=== PATIENT | female | born 1950 | race Caucasian/White ===

== ENCOUNTER 2020-12-15 16:22 | Emergency (ER) | payer MEDICARE, MEDICAID ==
[2020-12-15] MEDS ORDERED: Sodium Chloride 0.9% 10 ML Syringe FLUSH PRN (16:38)
[2020-12-15] MEDS ORDERED: Sodium Chloride 0.9% 1,000 ML IV ONE (16:43)
--- NOTE | 2020-12-15 16:47 | EDM.PDOC ---
ED HPI GENERAL MEDICAL PROBLEM - General Time Seen by Provider: 12/15/20 16:38 Source of Information: Reports: Patient - History of Present Illness INITIAL COMMENTS - FREE TEXT/NARRATIVE: Leonor is a 70 y/o female who apparently had an appt with her psychiatrist today for a medication follow up. She apparently had lost 15 pounds unintentionally over the as the 3 months and had conveyed to her psychiatrist that she has been having 3-4 episodes of diarrhea per day. No fever, but this seems worse since according to the patient. She is eating, but less. She is a primary patient of Jenny PACE at the [facility]. - Related Data Allergies Allergy/AdvReac Type Severity Reaction Status Date / Time penicillin Allergy Hives Verified 12/15/20 17:05 Home Meds: Home Meds Ascorbic Acid 500 mg PO DAILY 12/24/14 [History] Cholecalciferol (Vitamin D3) [Vitamin D] 2,000 unit PO DAILY 12/24/14 [History] Ezetimibe [Zetia] 10 mg PO DAILY 12/24/14 [History] LORazepam [Ativan] 1 mg PO QID 12/24/14 [History] Liothyronine Sodium 0.5 tab PO DAILY 12/24/14 [History] Multivitamin with Minerals [Multivitamins with Minerals] 1 cap PO DAILY 12/24/14 [History] Omeprazole [Prilosec] 40 mg PO DAILY 12/24/14 [History] QUEtiapine Fumarate [Quetiapine Fumarate] 200 mg PO BEDTIME PRN 12/24/14 [History] QUEtiapine [SEROquel XR] 600 mg PO BEDTIME 12/24/14 [History] Sertraline [Zoloft] 200 mg PO BEDTIME 12/24/14 [History] Tamsulosin [Tamsulosin 24 Hr] 0.4 mg PO BEDTIME 12/24/14 [History] Topiramate 100 mg PO DAILY 12/24/14 [History] Warfarin Sodium [Jantoven] 1 tab PO DAILY 12/24/14 [History] atorvaSTATin [Lipitor] 20 mg PO WITHDINNER 12/24/14 [History] busPIRone [Buspar] 20 mg PO BID 12/24/14 [History] Cyanocobalamin (Vitamin B-12) [B-12] 1,000 mcg PO DAILY 12/15/20 [History] Docusate Sodium [Colace] 100 mg PO BEDTIME PRN 12/15/20 [History] Docusate Sodium [Colace] 200 mg PO BEDTIME 12/15/20 [History] Mirtazapine [Remeron] 45 mg PO BEDTIME 12/15/20 [History] Mirtazapine [Remeron] 45 mg PO BEDTIME 12/15/20 [History] amLODIPine Besylate [Amlodipine Besylate] 10 mg PO DAILY 12/15/20 [History] lisinopriL [Lisinopril] 30 mg PO DAILY 12/15/20 [History] Past Medical History Other Gastrointestinal History: colitis, rectal bleeding Other Musculoskeletal History: CONTUSION A YEAR AGO TO TIBULA/FIBULA Other Endocrine/Metabolic History: hypothyroidism Other Dermatologic History: LEFT HAND Review of Systems - Review of Systems Review Of Systems: See Below Constitutional: Reports: Weakness Eyes: Reports: No Symptoms Ears: Reports: No Symptoms Nose: Reports: No Symptoms Mouth/Throat: Reports: No Symptoms Respiratory: Reports: No Symptoms Cardiovascular: Reports: No Symptoms GI/Abdominal: Reports: Decreased Appetite, Diarrhea Genitourinary: Reports: No Symptoms Musculoskeletal: Reports: No Symptoms Skin: Reports: No Symptoms Neurological: Reports: No Symptoms Psychiatric: Reports: No Symptoms ED EXAM, GENERAL - Physical Exam Exam: See Below Exam Limited By: No Limitations General Appearance: Alert, WD/WN, No Apparent Distress (Elderly female, appears older than stated age.) Eye Exam: Bilateral Eye: PERRL Ears: Normal External Exam, Normal Canal, Hearing Grossly Normal, Normal TMs Nose: Normal Inspection, Normal Mucosa Throat/Mouth: Normal Lips, Normal Voice, Other (Tongue slightly dry.) Head: Atraumatic, Normocephalic Neck: Normal Inspection, Supple Respiratory/Chest: No Respiratory Distress, Lungs Clear, Chest Non-Tender Cardiovascular: Normal Peripheral Pulses, Regular Rate, Rhythm, No Murmur GI/Abdominal: Normal Bowel Sounds, Soft (Female) Exam: Deferred Rectal (Female) Exam: Deferred Neurological: Alert, Oriented, CN II-XII Intact, Normal Cognition, No Motor/Sensory Deficits Psychiatric: Normal Affect, Normal Mood Skin Exam: Warm, Dry, Intact, No Rash, Pallor #1 Interpretation EKG Date: 12/15/20 Time: 16:40 Rhythm: NSR Rate (Beats/Min): 84 [place]: Normal P-Wave: Present QRS: Normal ST-T: Normal QT: Normal EKG Interpretation Comments: Sinus Rhythm Course - Vital Signs Text/Narrative:: 1638 The patient was seen by the ENGINEERING EQUIPMENT OPERATOR. Labs ordered. She was given IV fluids. 1730 Labs reviewed. CBC neg, Lactic Acid=2.5, doubt sepsis as cause. Patient afebrile and no sx of infection. CMP Vrnlbv=167, BUN=3, NVK=504, ALT=67. UA reviewed. SG=1.010. Vital are stable. Note INR elevated at 4.7. Will have pt hold her Coumadin for the next 3 doses then have a repeat INR with her PCP Jenny PACE for further direction. Trop and EKG neg, doubt any cardiac findings. In light of her labs and the chronic nature of her sx, we will have her PCP work her up. She has an upcoming appt next week, but will have her make that appt for Tuesday. Patient felt better following fluids. She was given written instructions and she left the ER in stable condition. Last Recorded V/S: Last Vital Signs Temp 37.1 C 12/15/20 16:25 Pulse 104 H 12/15/20 16:25 Resp 16 12/15/20 16:25 BP 163/67 H 12/15/20 16:25 Pulse Ox 99 12/15/20 16:25 - Orders/Labs/Meds Orders: Active Orders 24 hr Category Date Time Status Sodium Chloride 0.9% [Saline Flush] Med 12/15/20 16:38 Active 10 ml FLUSH ASDIRECTED PRN Saline Lock Insert [OM.PC] Stat Oth 12/15/20 16:39 Ordered Medication Orders Sodium Chloride (Sodium Chloride 0.9% 10 Ml Syringe) 10 ml FLUSH ASDIRECTED PRN PRN Reason: Keep Vein Open Labs: Laboratory Tests 12/15/20 12/15/20 12/15/20 Range/Units 16:25 16:25 16:35 WBC 6.8 (4.0-10.0) x10^3/uL RBC 3.93 L (4.00-5.50) x10^6/uL Hgb 13.1 (12.0-16.0) g/dL Hct 36.0 (33.0-47.0) % MCV 91.6 (78.0-93.0) fL MCH 33.3 H (26.0-32.0) pg MCHC 36.4 H (32.0-36.0) g/dL RDW Coeff of Wes 12.1 (10.0-15.0) % Plt Count 313 (130-400) x10^3/uL Immature Gran % (Auto) 0.10 (0.00-0.43) % Neut % (Auto) 48.6 L (50.0-80.0) % Lymph % (Auto) 41.1 (25.0-50.0) % Mathews % (Auto) 9.3 (2.0-11.0) % Eos % (Auto) 0.6 (0.0-4.0) % Baso % (Auto) 0.3 (0.2-1.2) % Neut # (Auto) 3.3 (1.8-7.7) x10^3/uL Lymph # (Auto) 2.8 (1.0-4.8) x10^3/uL Mathews # (Auto) 0.6 (0.0-0.8) x10^3/uL Eos # (Auto) 0.0 (0.0-0.5) x10^3/uL Baso # (Auto) 0.0 (0.0-0.2) x10^3/uL Immature Gran # (Auto) 0.01 (0.00-0.07) x10^3/uL PT (9.9-12.5) SEC INR (2.0-3.5) Sodium (136-145) mmol/L Potassium (3.5-5.1) mmol/L Chloride (98-107) mmol/L Carbon Dioxide (21-32) mmol/L Anion Gap (5-15) mmol/L BUN (7-18) mg/dL Creatinine (0.55-1.02) mg/dL Est Cr Clr Drug Dosing Estimated GFR (MDRD) Glucose (70-99) mg/dL Lactic Acid (0.4-2.0) mmol/L Calcium (8.5-10.1) mg/dL Corrected Calcium (8.5-10.1) mg/dL Magnesium (1.8-2.4) mg/dL Total Bilirubin (0.2-1.0) mg/dL AST (15-37) U/L ALT (14-59) U/L Alkaline Phosphatase (46-116) U/L Troponin I High Sens (<=51) ng/L C-Reactive Protein (<=0.9) mg/dL Total Protein (6.4-8.2) g/dL Albumin (3.4-5.0) g/dL Globulin Albumin/Globulin Ratio Amylase (25-115) U/L Lipase (73-393) U/L TSH, Ultra Sensitive (0.358-3.74) uIU/mL Urine Color Yellow (YELLOW) Urine Appearance Clear (CLEAR) Urine pH 7.0 (5.0-8.0) Ur Specific [place] 1.010 Urine Protein Negative (NEGATIVE) mg/dL Urine Glucose (UA) Negative (NEGATIVE) mg/dL Urine Ketones Negative (NEGATIVE) mg/dL Urine Occult Blood Negative (NEGATIVE) Urine Nitrite Negative (NEGATIVE) Urine Bilirubin Negative (NEGATIVE) Urine Urobilinogen 0.2 (0.2) EU/dL Ur Leukocyte Esterase Negative (NEGATIVE) Salicylates (2.8-20(Therapeutic)) mg/dL Urine Opiates Screen Negative (NEGATIVE) Ur Buprenorphine Scrn Negative (NEGATIVE) Ur Oxycodone Screen Negative (NEGATIVE) Urine Methadone Screen Negative (NEGATIVE) Acetaminophen (10-30) ug/ml Ur Barbiturates Screen Negative (NEGATIVE) Ur Phencyclidine Scrn Negative (NEGATIVE) Ur Amphetamine Screen Negative (NEGATIVE) U Methamphetamines Scrn Negative (NEGATIVE) Urine MDMA Screen Negative (NEGATIVE) U Benzodiazepines Scrn Positive H (NEGATIVE) U Cocaine Metab Screen Negative (NEGATIVE) U Marijuana (THC) Screen Negative (NEGATIVE) Ethyl Alcohol (0-3) mg/dL SARS CoV-2 RNA Rapid KRZYSZTOF (NEGATIVE) 12/15/20 12/15/20 12/15/20 Range/Units 16:35 16:35 16:35 WBC (4.0-10.0) x10^3/uL RBC (4.00-5.50) x10^6/uL Hgb (12.0-16.0) g/dL Hct (33.0-47.0) % MCV (78.0-93.0) fL MCH (26.0-32.0) pg MCHC (32.0-36.0) g/dL RDW Coeff of Wes (10.0-15.0) % Plt Count (130-400) x10^3/uL Immature Gran % (Auto) (0.00-0.43) % Neut % (Auto) (50.0-80.0) % Lymph % (Auto) (25.0-50.0) % Mathews % (Auto) (2.0-11.0) % Eos % (Auto) (0.0-4.0) % Baso % (Auto) (0.2-1.2) % Neut # (Auto) (1.8-7.7) x10^3/uL Lymph # (Auto) (1.0-4.8) x10^3/uL Mathews # (Auto) (0.0-0.8) x10^3/uL Eos # (Auto) (0.0-0.5) x10^3/uL Baso # (Auto) (0.0-0.2) x10^3/uL Immature Gran # (Auto) (0.00-0.07) x10^3/uL PT 51.5 H (9.9-12.5) SEC INR 4.7 H (2.0-3.5) Sodium 131 L (136-145) mmol/L Potassium 3.6 (3.5-5.1) mmol/L Chloride 95 L (98-107) mmol/L Carbon Dioxide 19 L (21-32) mmol/L Anion Gap 20.6 H (5-15) mmol/L BUN 3 L (7-18) mg/dL Creatinine 0.7 (0.55-1.02) mg/dL Est Cr Clr Drug Dosing TNP Estimated GFR (MDRD) > 60 Glucose 111 H (70-99) mg/dL Lactic Acid 2.5 H* (0.4-2.0) mmol/L Calcium 8.5 (8.5-10.1) mg/dL Corrected Calcium 9.1 (8.5-10.1) mg/dL Magnesium 1.7 L (1.8-2.4) mg/dL Total Bilirubin 0.4 (0.2-1.0) mg/dL AST 102 H (15-37) U/L ALT 67 H (14-59) U/L Alkaline Phosphatase 97 (46-116) U/L Troponin I High Sens 6 (<=51) ng/L C-Reactive Protein < 0.2 (<=0.9) mg/dL Total Protein 6.5 (6.4-8.2) g/dL Albumin 3.3 L (3.4-5.0) g/dL Globulin 3.2 Albumin/Globulin Ratio 1.03 Amylase 20 L (25-115) U/L Lipase 67 L (73-393) U/L TSH, Ultra Sensitive 2.321 (0.358-3.74) uIU/mL Urine Color (YELLOW) Urine Appearance (CLEAR) Urine pH (5.0-8.0) Ur Specific [place] Urine Protein (NEGATIVE) mg/dL Urine Glucose (UA) (NEGATIVE) mg/dL Urine Ketones (NEGATIVE) mg/dL Urine Occult Blood (NEGATIVE) Urine Nitrite (NEGATIVE) Urine Bilirubin (NEGATIVE) Urine Urobilinogen (0.2) EU/dL Ur Leukocyte Esterase (NEGATIVE) Salicylates (2.8-20(Therapeutic)) mg/dL Urine Opiates Screen (NEGATIVE) Ur Buprenorphine Scrn (NEGATIVE) Ur Oxycodone Screen (NEGATIVE) Urine Methadone Screen (NEGATIVE) Acetaminophen 3 L (10-30) ug/ml Ur Barbiturates Screen (NEGATIVE) Ur Phencyclidine Scrn (NEGATIVE) Ur Amphetamine Screen (NEGATIVE) U Methamphetamines Scrn (NEGATIVE) Urine MDMA Screen (NEGATIVE) U Benzodiazepines Scrn (NEGATIVE) U Cocaine Metab Screen (NEGATIVE) U Marijuana (THC) Screen (NEGATIVE) Ethyl Alcohol < 3 (0-3) mg/dL SARS CoV-2 RNA Rapid KRZYSZTOF (NEGATIVE) 12/15/20 12/15/20 Range/Units 16:35 16:40 WBC (4.0-10.0) x10^3/uL RBC (4.00-5.50) x10^6/uL Hgb (12.0-16.0) g/dL Hct (33.0-47.0) % MCV (78.0-93.0) fL MCH (26.0-32.0) pg MCHC (32.0-36.0) g/dL RDW Coeff of Wes (10.0-15.0) % Plt Count (130-400) x10^3/uL Immature Gran % (Auto) (0.00-0.43) % Neut % (Auto) (50.0-80.0) % Lymph % (Auto) (25.0-50.0) % Mathews % (Auto) (2.0-11.0) % Eos % (Auto) (0.0-4.0) % Baso % (Auto) (0.2-1.2) % Neut # (Auto) (1.8-7.7) x10^3/uL Lymph # (Auto) (1.0-4.8) x10^3/uL Mathews # (Auto) (0.0-0.8) x10^3/uL Eos # (Auto) (0.0-0.5) x10^3/uL Baso # (Auto) (0.0-0.2) x10^3/uL Immature Gran # (Auto) (0.00-0.07) x10^3/uL PT (9.9-12.5) SEC INR (2.0-3.5) Sodium (136-145) mmol/L Potassium (3.5-5.1) mmol/L Chloride (98-107) mmol/L Carbon Dioxide (21-32) mmol/L Anion Gap (5-15) mmol/L BUN (7-18) mg/dL Creatinine (0.55-1.02) mg/dL Est Cr Clr Drug Dosing Estimated GFR (MDRD) Glucose (70-99) mg/dL Lactic Acid (0.4-2.0) mmol/L Calcium (8.5-10.1) mg/dL Corrected Calcium (8.5-10.1) mg/dL Magnesium (1.8-2.4) mg/dL Total Bilirubin (0.2-1.0) mg/dL AST (15-37) U/L ALT (14-59) U/L Alkaline Phosphatase (46-116) U/L Troponin I High Sens (<=51) ng/L C-Reactive Protein (<=0.9) mg/dL Total Protein (6.4-8.2) g/dL Albumin (3.4-5.0) g/dL Globulin Albumin/Globulin Ratio Amylase (25-115) U/L Lipase (73-393) U/L TSH, Ultra Sensitive (0.358-3.74) uIU/mL Urine Color (YELLOW) Urine Appearance (CLEAR) Urine pH (5.0-8.0) Ur Specific [place] Urine Protein (NEGATIVE) mg/dL Urine Glucose (UA) (NEGATIVE) mg/dL Urine Ketones (NEGATIVE) mg/dL Urine Occult Blood (NEGATIVE) Urine Nitrite (NEGATIVE) Urine Bilirubin (NEGATIVE) Urine Urobilinogen (0.2) EU/dL Ur Leukocyte Esterase (NEGATIVE) Salicylates 5.3 (2.8-20(Therapeutic)) mg/dL Urine Opiates Screen (NEGATIVE) Ur Buprenorphine Scrn (NEGATIVE) Ur Oxycodone Screen (NEGATIVE) Urine Methadone Screen (NEGATIVE) Acetaminophen (10-30) ug/ml Ur Barbiturates Screen (NEGATIVE) Ur Phencyclidine Scrn (NEGATIVE) Ur Amphetamine Screen (NEGATIVE) U Methamphetamines Scrn (NEGATIVE) Urine MDMA Screen (NEGATIVE) U Benzodiazepines Scrn (NEGATIVE) U Cocaine Metab Screen (NEGATIVE) U Marijuana (THC) Screen (NEGATIVE) Ethyl Alcohol (0-3) mg/dL SARS CoV-2 RNA Rapid KRZYSZTOF Negative (NEGATIVE) Meds: Medications Generic Name Dose Route Start Last Admin Trade Name Freq PRN Reason Stop Dose Admin Sodium Chloride 10 ml 12/15/20 16:38 Sodium Chloride 0.9% 10 Ml Syringe FLUSH ASDIRECTED PRN Keep Vein Open Discontinued Medications Generic Name Dose Route Start Last Admin Trade Name Freq PRN Reason Stop Dose Admin Sodium Chloride 1,000 mls @ 999 mls/hr 12/15/20 16:43 12/15/20 16:40 Normal Saline IV 12/15/20 17:43 999 mls/hr ONETIME ONE Administration Departure - Departure Time of Disposition: 18:06 Disposition: Home, Self-Care 01 Condition: Good Clinical Impression: Over-anticoagulated, Chronic diarrhea - Discharge Information *PRESCRIPTION DRUG MONITORING PROGRAM REVIEWED*: Not Applicable *COPY OF PRESCRIPTION DRUG MONITORING REPORT IN PATIENT KG: Not Applicable Instructions: Warfarin Information, Chronic Diarrhea Referrals: Jenny Butterfield PA-C [Primary Care Provider] - Additional Instructions: -Hold Coumadin for next 3 doses -Call clinic and get an appt for Tuesday to have your INR checked. -Diet as tolerates -You also need to make an appt to follow up with Jenny Butterfield PAC for further workup. -Return as needed to the ER. Sepsis Event Note (ED) - Focused Exam Vital Signs: Vital Signs Temp Pulse Resp BP Pulse Ox 12/15/20 16:25 37.1 C 104 H 16 163/67 H 99 - Problem List & Annotations (1) Over-anticoagulated SNOMED Code(s): 87215371, 534665425 Code(s): HEZ2026 - Status: Acute Current Visit: Yes Annotation/Comment:: INR=4.7, no bleeding issues. Hold Coumadin for next 3 doses then repeat INR Fri. (2) Chronic diarrhea SNOMED Code(s): 831408105 Code(s): K52.9 - NONINFECTIVE GASTROENTERITIS AND COLITIS, UNSPECIFIED Status: Acute Current Visit: Yes Annotation/Comment:: No acute lab findings in ER. [place] better after IV fluids. Will have PCP work her up further. She had not stools in the ER or today for that matter. - Problem List Review Problem List Initiated/Reviewed/Updated: Yes - My Orders Last 24 Hours: My Active Orders 12/15/20 16:38 Sodium Chloride 0.9% [Saline Flush] 10 ml FLUSH ASDIRECTED PRN 12/15/20 16:39 Saline Lock Insert [OM.PC] Stat - Assessment/Plan Last 24 Hours: My Active Orders 12/15/20 16:38 Sodium Chloride 0.9% [Saline Flush] 10 ml FLUSH ASDIRECTED PRN 12/15/20 16:39 Saline Lock Insert [OM.PC] Stat Plan: See above
[2020-12-15 17:05] LABS: BARBITURATE SCREEN,URINE NEGATIVE (NEGATIVE); BENZODIAZEPINES SCREEN,URINE POSITIVE (NEGATIVE); BUPRENORPHINE SCREEN,URINE NEGATIVE (NEGATIVE); METHAMPHETAMINE SCREEN, URINE NEGATIVE (NEGATIVE); THC SCREEN,URINE 50 NG/ML NEGATIVE (NEGATIVE)
[2020-12-15 17:12] LABS: ACETAMINOPHEN 3 ug/ml (10-30); CHLORIDE,CL 95 mmol/L (98-107); SODIUM,NA 131 mmol/L (136-145)
[2020-12-15 17:14] LABS: ANION GAP 20.6 mmol/L (5-15)
[2020-12-15 17:23] VITALS: BP 163/67; PULSE 104
== END 2020-12-15 18:25 | disposition home or self-care (01) ==
LOC: VM.ED 16:22
DX: K52.9 Noninfective gastroenteritis and colitis, unspecified (principal); D68.9 Coagulation defect, unspecified; Z79.01 Long term (current) use of anticoagulants; Z88.0 Allergy status to penicillin; Z79.899 Other long term (current) drug therapy; Z20.822 Contact with and (suspected) exposure to COVID-19
CPT/HCPCS: 80053; 80143; 80179; 80305-QW; 80307; 81003; 82150; 83605; 83690; 83735; 84443; 84484; 85025; 85610; 86140; 93005; 93010; 99284; 99284-25; J7030; U0002

== ENCOUNTER 2021-03-14 08:05 | Emergency (ER) | payer MEDICARE, MEDICAID ==
[2021-03-14] MEDS ORDERED: Sodium Chloride 0.9% 10 ML Syringe FLUSH PRN (08:12)
[2021-03-14 08:57] LABS: CHLORIDE,CL 100 mmol/L (98-107); SODIUM,NA 135 mmol/L (136-145)
[2021-03-14 09:01] LABS: ANION GAP 15.9 mmol/L (5-15)
[2021-03-14] MEDS ORDERED: Take Home: Acetaminophen/HYDROcodone 325-5 MG, 5 Tab Pack PO ONE (09:21)
[2021-03-14] MEDS ORDERED: Acetaminophen/HYDROcodone 325-5 MG Tab PO ONE (09:21)
== END 2021-03-14 10:05 | disposition home or self-care (01) ==
LOC: VM.ED 08:05
DX: S09.90XA Unspecified injury of head, initial encounter (principal); B37.9 Candidiasis, unspecified; E78.00 Pure hypercholesterolemia, unspecified; I10 Essential (primary) hypertension; E03.9 Hypothyroidism, unspecified; Z72.0 Tobacco use; Z88.0 Allergy status to penicillin; Z79.01 Long term (current) use of anticoagulants; Z79.899 Other long term (current) drug therapy; Z20.822 Contact with and (suspected) exposure to COVID-19; W18.30XA Fall on same level, unspecified, initial encounter; Y92.039 Unspecified place in apartment as the place of occurrence of the external cause
CPT/HCPCS: 70450; 71250; 72100; 72125; 72170; 80053; 81003; 82550; 83735; 84443; 85025; 85610; 93005; 99284-25; A9270-GY; U0002

== ENCOUNTER 2022-08-02 19:05 | Emergency (ER) | payer MEDICAID, MEDICARE ==
[2022-08-02 19:22] VITALS: PULSE 90
[2022-08-02 19:43] LABS: BASOPHILS PERCENT AUTO 0.4 % (0.2-1.2); EOSINOPHILS PERCENT AUTO 0.4 % (0.0-4.0); HEMATOCRIT 27.5 % (33.0-47.0); HEMOGLOBIN 9.7 g/dL (12.0-16.0); IMMATURE GRAN ABSOLUTE AUTO 0.04 x10^3/uL (0.00-0.07); LYMPHOCYTES ABSOLUTE AUTO 1.9 x10^3/uL (1.0-4.8); MEAN CORPUSCULAR HEMOGLOBIN 35.1 pg (26.0-32.0); MEAN CORPUSCULAR HGB CONC 35.3 g/dL (32.0-36.0); MEAN CORPUSCULAR VOLUME 99.6 fL (78.0-93.0); MONOCYTES ABSOLUTE AUTO 0.7 x10^3/uL (0.0-0.8); NEUTROPHILS PERCENT AUTO 64.7 % (50.0-80.0); PLATELET COUNT,PLT 292 x10^3/uL (130-400); RED BLOOD CELL COUNT 2.76 x10^6/uL (4.00-5.50); WHITE BLOOD CELL COUNT,WBC 7.8 x10^3/uL (4.0-10.0)
[2022-08-02 19:52] LABS: A/G RATIO 1.13; ALANINE AMINOTRANSFERASE,ALT 37 U/L (14-59); ALBUMIN 3.6 g/dL (3.4-5.0); ALKALINE PHOSPHATASE 78 U/L (46-116); AMYLASE 27 U/L (25-115); ASPARTATE AMNIOTRANSFERASE,AST 30 U/L (15-37); BILIRUBIN TOTAL 0.3 mg/dL (0.2-1.0); BLOOD UREA NITROGEN,BUN 9 mg/dL (7-18); C-REACTIVE PROTEIN 0.7 mg/dL (<=0.9); CALCIUM 9.1 mg/dL (8.5-10.1); CARBON DIOXIDE,CO2 18 mmol/L (21-32); CHLORIDE,CL 102 mmol/L (98-107); CREATININE 0.7 mg/dL (0.55-1.02); GLUCOSE RANDOM 132 mg/dL (70-99); LIPASE 86 U/L (73-393); POTASSIUM,K 3.6 mmol/L (3.5-5.1); PROTEIN TOTAL,TP 6.8 g/dL (6.4-8.2); SODIUM,NA 137 mmol/L (136-145)
[2022-08-02 19:53] LABS: ANION GAP 20.6 mmol/L (5-15); ESTIMATED GFR 93 mL/min (>=60)
[2022-08-02 19:56] LABS: INR 2.8 (2.0-3.5)
[2022-08-02] MEDS: Sodium Chloride 0.9% 1,000 ML IV ONE (20:15)
[2022-08-02 22:25] VITALS: BP 134/62
== END 2022-08-02 21:33 | disposition home or self-care (01) ==
LOC: VM.ED 19:05
DX: K52.9 Noninfective gastroenteritis and colitis, unspecified (principal); F41.9 Anxiety disorder, unspecified; I10 Essential (primary) hypertension; E78.00 Pure hypercholesterolemia, unspecified; E03.9 Hypothyroidism, unspecified; F17.210 Nicotine dependence, cigarettes, uncomplicated; Z88.0 Allergy status to penicillin; Z79.899 Other long term (current) drug therapy; Z79.01 Long term (current) use of anticoagulants
CPT/HCPCS: 80053; 82150; 82607; 82746; 83690; 85025; 85610; 86140; 96360; 99284; 99284-25; J7030

== ENCOUNTER 2022-08-28 15:42 | Inpatient (IN) | payer MEDICARE ==
[2022-08-28 16:22] LABS: BASOPHILS PERCENT AUTO 0.1 % (0.2-1.2); HEMATOCRIT 19.9 % (33.0-47.0); IMMATURE GRAN ABSOLUTE AUTO 0.02 x10^3/uL (0.00-0.07); LYMPHOCYTES ABSOLUTE AUTO 1.4 x10^3/uL (1.0-4.8); LYMPHOCYTES PERCENT AUTO 11.8 % (25.0-50.0); MEAN CORPUSCULAR HGB CONC 35.2 g/dL (32.0-36.0); MEAN CORPUSCULAR VOLUME 96.6 fL (78.0-93.0); MONOCYTES ABSOLUTE AUTO 0.7 x10^3/uL (0.0-0.8); MONOCYTES PERCENT AUTO 6.3 % (2.0-11.0); NEUTROPHILS ABSOLUTE AUTO 9.3 x10^3/uL (1.8-7.7); NEUTROPHILS PERCENT AUTO 81.6 % (50.0-80.0); PLATELET COUNT,PLT 235 x10^3/uL (130-400); RED BLOOD CELL COUNT 2.06 x10^6/uL (4.00-5.50); WHITE BLOOD CELL COUNT,WBC 11.4 x10^3/uL (4.0-10.0)
[2022-08-28 16:33] LABS: LACTIC ACID 0.6 mmol/L (0.4-2.0)
[2022-08-28 16:40] LABS: A/G RATIO 0.75; ALANINE AMINOTRANSFERASE,ALT 27 U/L (14-59); ALBUMIN 2.4 g/dL (3.4-5.0); ALKALINE PHOSPHATASE 82 U/L (46-116); ASPARTATE AMNIOTRANSFERASE,AST 24 U/L (15-37); BILIRUBIN TOTAL 0.3 mg/dL (0.2-1.0); BLOOD UREA NITROGEN,BUN 15 mg/dL (7-18); C-REACTIVE PROTEIN 7.36 mg/dL (<=0.30); CALCIUM 7.8 mg/dL (8.5-10.1); CARBON DIOXIDE,CO2 19 mmol/L (21-32); CHLORIDE,CL 103 mmol/L (98-107); CREATININE 0.6 mg/dL (0.55-1.02); GLUCOSE RANDOM 118 mg/dL (70-99); MAGNESIUM 1.8 mg/dL (1.8-2.4); PHOSPHORUS 3.2 mg/dL (2.6-4.7); POTASSIUM,K 3.9 mmol/L (3.5-5.1); PROTEIN TOTAL,TP 5.6 g/dL (6.4-8.2); SODIUM,NA 136 mmol/L (136-145); TSH ULTRASENSITIVE 2.908 uIU/mL (0.358-3.74)
[2022-08-28 16:49] LABS: ANION GAP 17.9 mmol/L (5-15); ESTIMATED GFR 97 mL/min (>=60)
[2022-08-28 16:56] LABS: ETHANOL BLOOD MEDICAL < 3 mg/dL (0-3)
[2022-08-28 17:09] LABS: APPEARANCE,URINE CLEAR (CLEAR); BILIRUBIN,URINE NEGATIVE (NEGATIVE); COLOR,URINE LIGHT YELLOW (YELLOW); GLUCOSE,URINE NEGATIVE (NEGATIVE); KETONES,URINE NEGATIVE (NEGATIVE); LEUKOCYTE ESTERASE,URINE NEGATIVE (NEGATIVE); NITRITE,URINE NEGATIVE (NEGATIVE); OCCULT BLOOD,URINE TRACE-LYSED (NEGATIVE); PROTEIN,URINE NEGATIVE (NEGATIVE); UROBILINOGEN,URINE 0.2 EU/dL (0.2)
[2022-08-28 17:11] LABS: CORONAVIRUS COVID-19 NAA NEGATIVE (NEGATIVE); INFLUENZA A NAA NEGATIVE (NEGATIVE); INFLUENZA B NAA NEGATIVE (NEGATIVE); RESPIRATORY SYNCYTIAL VIR NAA NEGATIVE (NEGATIVE)
[2022-08-28 17:13] LABS: AMPHETAMINE, URINE NEGATIVE (NEGATIVE); BARBITUATES,URINE NEGATIVE (NEGATIVE); BENZODIAZEPINES,URINE POSITIVE (NEGATIVE); BUPRENORPHINE,URINE NEGATIVE (NEGATIVE); COCAINE,URINE NEGATIVE (NEGATIVE); MARIJUANA,URINE NEGATIVE (NEGATIVE); METHADONE,URINE NEGATIVE (NEGATIVE); METHAMPHETAMINE,URINE NEGATIVE (NEGATIVE); METHYLENEDIOXYMETHAMP,UR NEGATIVE (NEGATIVE); OPIATES,URINE NEGATIVE (NEGATIVE); OXYCODONE,URINE NEGATIVE (NEGATIVE); PHENCYCLIDINE,URINE NEGATIVE
[2022-08-28] MEDS ORDERED: Iopamidol 612 MG/ML 100 ML Bottle IVPUSH ONE (17:16)
[2022-08-28 17:21] LABS: INR > 13.0 (2.0-3.5)
[2022-08-28 17:22] LABS: PROTHROMBIN TIME > 170.9 SEC (9.5-12.2); PTT,PARTIAL THROMBOPLSTIN TIME > 120.0 SEC (23.6-33.6)
[2022-08-28 17:27] LABS: BACTERIA,URINE NOT SEEN /HPF (NOT SEEN); MUCUS,URINE NOT SEEN /LPF (NOT SEEN); RBC,URINE 0-5 /HPF (NOT SEEN); SQUAMOUS EPITHELIAL CELLS,UR FEW /HPF (NOT SEEN); WBC,URINE 0-5 /HPF (NOT SEEN)
[2022-08-28 17:37] LABS: FECAL OCCULT BLOOD INTERP NEGATIVE (NEGATIVE)
[2022-08-28 18:52] LABS: AMYLASE 11 U/L (25-115); LIPASE 18 U/L (19-71)
[2022-08-28] MEDS ORDERED: QUEtiapine 100 MG Tab PO SCH (21:00)
[2022-08-28] MEDS ORDERED: Phytonadione 5 MG Tab PO ONE (21:15)
[2022-08-28] MEDS: LORazepam 1 MG Tab PO SCH (21:44)
[2022-08-28] MEDS: Sertraline 100 MG Tab PO SCH (21:45)
[2022-08-28] MEDS: Tamsulosin 0.4 MG Cap.ER PO SCH (21:48)
[2022-08-28] MEDS: Mirtazapine 30 MG Tab PO SCH (21:48)
[2022-08-28] MEDS: Docusate Sodium 100 MG Cap PO SCH (21:50)
[2022-08-28] MEDS: QUEtiapine 100 MG Tab PO PRN (21:52)
[2022-08-29] MEDS: QUEtiapine 100 MG Tab PO SCH ×3 (00:49→21:02)
[2022-08-29 08:06] LABS: BASOPHILS PERCENT AUTO 0.3 % (0.2-1.2); EOSINOPHILS PERCENT AUTO 0.4 % (0.0-4.0); HEMATOCRIT 20.7 % (33.0-47.0); HEMOGLOBIN 7.2 g/dL (12.0-16.0); IMMATURE GRAN ABSOLUTE AUTO 0.01 x10^3/uL (0.00-0.07); LYMPHOCYTES ABSOLUTE AUTO 1.5 x10^3/uL (1.0-4.8); LYMPHOCYTES PERCENT AUTO 21.2 % (25.0-50.0); MEAN CORPUSCULAR HEMOGLOBIN 32.4 pg (26.0-32.0); MEAN CORPUSCULAR HGB CONC 34.8 g/dL (32.0-36.0); MEAN CORPUSCULAR VOLUME 93.2 fL (78.0-93.0); MONOCYTES ABSOLUTE AUTO 0.6 x10^3/uL (0.0-0.8); MONOCYTES PERCENT AUTO 8.1 % (2.0-11.0); NEUTROPHILS PERCENT AUTO 69.9 % (50.0-80.0); PLATELET COUNT,PLT 215 x10^3/uL (130-400); RED BLOOD CELL COUNT 2.22 x10^6/uL (4.00-5.50); WHITE BLOOD CELL COUNT,WBC 7.2 x10^3/uL (4.0-10.0)
[2022-08-29] MEDS: Topiramate 50 MG Tab PO SCH (08:20)
[2022-08-29] MEDS: LORazepam 1 MG Tab PO SCH ×4 (08:21→21:00)
[2022-08-29] MEDS: Ascorbic Acid 500 MG Tab PO SCH (08:21)
[2022-08-29] MEDS: Cyanocobalamin (Vitamin B12) 1,000 MCG Tab PO SCH (08:21)
[2022-08-29] MEDS: amLODIPine 10 MG Tab PO SCH (08:22)
[2022-08-29] MEDS: Cholecalciferol (Vitamin D3) 25 MCG Tab PO SCH (08:22)
[2022-08-29] MEDS: Multivitamin Tab PO SCH (08:23)
[2022-08-29] MEDS: Ezetimibe 10 MG Tab PO SCH (08:23)
[2022-08-29] MEDS: Lisinopril 20 MG Tab PO SCH (08:24)
[2022-08-29 08:28] LABS: A/G RATIO 0.72; ALBUMIN 2.1 g/dL (3.4-5.0); BILIRUBIN TOTAL 0.4 mg/dL (0.2-1.0); CALCIUM 7.3 mg/dL (8.5-10.1); CREATININE 0.5 mg/dL (0.55-1.02); EST CRCL DRUG DOSING (CG) 90.41 mL/min; POTASSIUM,K 3.3 mmol/L (3.5-5.1)
[2022-08-29 08:31] LABS: ANION GAP 13.3 mmol/L (5-15)
[2022-08-29 08:35] LABS: INR 2.6 (2.0-3.5); PROTHROMBIN TIME 26.8 SEC (9.5-12.2)
[2022-08-29] MEDS ORDERED: QUEtiapine 100 MG Tab PO SCH (09:00)
[2022-08-29] MEDS: Docusate Sodium 100 MG Cap PO SCH ×2 (10:30→21:00)
[2022-08-29] MEDS ORDERED: Potassium Chloride 20 MEQ Tab.ER PO ONE (11:08)
[2022-08-29] MEDS: Sodium Chloride 0.9% 10 ML Syringe FLUSH PRN (11:27)
[2022-08-29] MEDS: Omeprazole 20 MG Cap.CR PO SCH (11:29)
[2022-08-29] MEDS: atorvaSTATin 40 MG Tab PO SCH (17:38)
[2022-08-29] MEDS: Polyethylene Glycol 3350 Powder 17 GM Packet PO SCH (17:40)
[2022-08-29] MEDS: Tamsulosin 0.4 MG Cap.ER PO SCH (21:00)
[2022-08-29] MEDS: Mirtazapine 30 MG Tab PO SCH (21:00)
[2022-08-29] MEDS: Sertraline 100 MG Tab PO SCH (21:01)
[2022-08-30] MEDS: QUEtiapine 100 MG Tab PO PRN (00:04)
[2022-08-30 07:10] LABS: BASOPHILS PERCENT AUTO 0.4 % (0.2-1.2); EOSINOPHILS ABSOLUTE AUTO 0.1 x10^3/uL (0.0-0.5); EOSINOPHILS PERCENT AUTO 0.9 % (0.0-4.0); HEMATOCRIT 27.4 % (33.0-47.0); HEMOGLOBIN 9.3 g/dL (12.0-16.0); IMMATURE GRAN ABSOLUTE AUTO 0.02 x10^3/uL (0.00-0.07); LYMPHOCYTES ABSOLUTE AUTO 1.8 x10^3/uL (1.0-4.8); LYMPHOCYTES PERCENT AUTO 22.2 % (25.0-50.0); MEAN CORPUSCULAR HEMOGLOBIN 31.6 pg (26.0-32.0); MEAN CORPUSCULAR HGB CONC 33.9 g/dL (32.0-36.0); MEAN CORPUSCULAR VOLUME 93.2 fL (78.0-93.0); MONOCYTES ABSOLUTE AUTO 0.8 x10^3/uL (0.0-0.8); MONOCYTES PERCENT AUTO 9.7 % (2.0-11.0); NEUTROPHILS ABSOLUTE AUTO 5.3 x10^3/uL (1.8-7.7); NEUTROPHILS PERCENT AUTO 66.5 % (50.0-80.0); PLATELET COUNT,PLT 221 x10^3/uL (130-400); RED BLOOD CELL COUNT 2.94 x10^6/uL (4.00-5.50); WHITE BLOOD CELL COUNT,WBC 7.9 x10^3/uL (4.0-10.0)
[2022-08-30 07:32] LABS: A/G RATIO 0.65; ALBUMIN 2.2 g/dL (3.4-5.0); ANION GAP 15.2 mmol/L (5-15); BILIRUBIN TOTAL 0.6 mg/dL (0.2-1.0); CALCIUM 8.2 mg/dL (8.5-10.1); CREATININE 0.5 mg/dL (0.55-1.02); EST CRCL DRUG DOSING (CG) 90.41 mL/min; POTASSIUM,K 4.2 mmol/L (3.5-5.1); PROTEIN TOTAL,TP 5.6 g/dL (6.4-8.2); PROTHROMBIN TIME 10.9 SEC (9.5-12.2)
[2022-08-30] MEDS: Polyethylene Glycol 3350 Powder 17 GM Packet PO SCH (08:31)
[2022-08-30] MEDS: Topiramate 50 MG Tab PO SCH (08:31)
[2022-08-30] MEDS: Ezetimibe 10 MG Tab PO SCH (08:31)
[2022-08-30] MEDS: QUEtiapine 100 MG Tab PO SCH ×2 (08:32→20:31)
[2022-08-30] MEDS: Lisinopril 20 MG Tab PO SCH (08:33)
[2022-08-30] MEDS: Multivitamin Tab PO SCH (08:34)
[2022-08-30] MEDS: Cholecalciferol (Vitamin D3) 25 MCG Tab PO SCH (08:34)
[2022-08-30] MEDS: amLODIPine 10 MG Tab PO SCH (08:34)
[2022-08-30] MEDS: Docusate Sodium 100 MG Cap PO SCH ×2 (08:35→20:28)
[2022-08-30] MEDS: Omeprazole 20 MG Cap.CR PO SCH (08:35)
[2022-08-30] MEDS: Ascorbic Acid 500 MG Tab PO SCH (08:35)
[2022-08-30] MEDS: LORazepam 1 MG Tab PO SCH ×2 (08:35→12:55)
[2022-08-30] MEDS: Cyanocobalamin (Vitamin B12) 1,000 MCG Tab PO SCH (08:36)
[2022-08-30] MEDS: Acetaminophen 325 MG Tab PO PRN ×2 (14:01→21:31)
[2022-08-30] MEDS: Sodium Chloride 0.9% 10 ML Syringe FLUSH PRN (17:36)
[2022-08-30] MEDS: atorvaSTATin 40 MG Tab PO SCH (17:37)
[2022-08-30] MEDS: LORazepam 0.5 MG Tab PO SCH ×2 (17:38→20:28)
[2022-08-30] MEDS: Sertraline 100 MG Tab PO SCH (20:26)
[2022-08-30] MEDS: Tamsulosin 0.4 MG Cap.ER PO SCH (20:26)
[2022-08-30] MEDS: Mirtazapine 30 MG Tab PO SCH (20:29)
[2022-08-31] MEDS: QUEtiapine 100 MG Tab PO PRN (04:23)
[2022-08-31 07:40] LABS: BASOPHILS PERCENT AUTO 0.3 % (0.2-1.2); EOSINOPHILS ABSOLUTE AUTO 0.1 x10^3/uL (0.0-0.5); EOSINOPHILS PERCENT AUTO 1.3 % (0.0-4.0); HEMATOCRIT 25.7 % (33.0-47.0); HEMOGLOBIN 8.7 g/dL (12.0-16.0); IMMATURE GRAN ABSOLUTE AUTO 0.01 x10^3/uL (0.00-0.07); LYMPHOCYTES ABSOLUTE AUTO 1.6 x10^3/uL (1.0-4.8); LYMPHOCYTES PERCENT AUTO 22.1 % (25.0-50.0); MEAN CORPUSCULAR HGB CONC 33.9 g/dL (32.0-36.0); MEAN CORPUSCULAR VOLUME 94.5 fL (78.0-93.0); MONOCYTES ABSOLUTE AUTO 0.8 x10^3/uL (0.0-0.8); MONOCYTES PERCENT AUTO 11.7 % (2.0-11.0); NEUTROPHILS ABSOLUTE AUTO 4.6 x10^3/uL (1.8-7.7); NEUTROPHILS PERCENT AUTO 64.5 % (50.0-80.0); PLATELET COUNT,PLT 233 x10^3/uL (130-400); RED BLOOD CELL COUNT 2.72 x10^6/uL (4.00-5.50); WHITE BLOOD CELL COUNT,WBC 7.1 x10^3/uL (4.0-10.0)
[2022-08-31 07:46] LABS: CALCIUM 7.8 mg/dL (8.5-10.1); CREATININE 0.5 mg/dL (0.55-1.02); EST CRCL DRUG DOSING (CG) 90.41 mL/min; POTASSIUM,K 4.4 mmol/L (3.5-5.1)
[2022-08-31 07:48] LABS: ANION GAP 13.4 mmol/L (5-15)
[2022-08-31 09:31] VITALS: BP 110/56; PULSE 84
[2022-08-31] MEDS: Topiramate 50 MG Tab PO SCH (09:36)
[2022-08-31] MEDS: Omeprazole 20 MG Cap.CR PO SCH (09:36)
[2022-08-31] MEDS: Ascorbic Acid 500 MG Tab PO SCH (09:36)
[2022-08-31] MEDS: LORazepam 0.5 MG Tab PO SCH (09:36)
[2022-08-31] MEDS: Multivitamin Tab PO SCH (09:36)
[2022-08-31] MEDS: Ezetimibe 10 MG Tab PO SCH (09:37)
[2022-08-31] MEDS: Lisinopril 20 MG Tab PO SCH (09:37)
[2022-08-31] MEDS: Cholecalciferol (Vitamin D3) 25 MCG Tab PO SCH (09:38)
[2022-08-31] MEDS: Docusate Sodium 100 MG Cap PO SCH (09:38)
[2022-08-31] MEDS: QUEtiapine 100 MG Tab PO SCH (09:38)
[2022-08-31] MEDS: amLODIPine 10 MG Tab PO SCH (09:39)
[2022-08-31] MEDS: Cyanocobalamin (Vitamin B12) 1,000 MCG Tab PO SCH (09:39)
[2022-08-31] MEDS: Polyethylene Glycol 3350 Powder 17 GM Packet PO SCH (09:39)
== END 2022-08-31 11:57 | disposition swing bed (61) | DRG 811 ==
LOC: VM.ED 15:42 → VM.MS 18:47
PROVIDERS: ADMIT Nurse Practitioner Family; ATTEND Internal Medicine
PROC: 30233N1 Transfusion of Nonautologous Red Blood Cells into Peripheral Vein, Percutaneous Approach (ICD-10-PCS; principal; 2022-08-28)
PROC: 30233N1 Transfusion of Nonautologous Red Blood Cells into Peripheral Vein, Percutaneous Approach (ICD-10-PCS; 2022-08-29)
DX: D62 Acute posthemorrhagic anemia (principal); D64.9 Anemia, unspecified; K85.90 Acute pancreatitis without necrosis or infection, unspecified; K21.9 Gastro-esophageal reflux disease without esophagitis; I10 Essential (primary) hypertension; Z20.822 Contact with and (suspected) exposure to COVID-19; E78.5 Hyperlipidemia, unspecified; E78.00 Pure hypercholesterolemia, unspecified; R29.6 Repeated falls; E03.9 Hypothyroidism, unspecified; F31.9 Bipolar disorder, unspecified; R79.1 Abnormal coagulation profile; R41.3 Other amnesia; R73.01 Impaired fasting glucose; M54.2 Cervicalgia; I25.10 Atherosclerotic heart disease of native coronary artery without angina pectoris; F32.A Depression, unspecified; F41.9 Anxiety disorder, unspecified; G43.909 Migraine, unspecified, not intractable, without status migrainosus; Z79.01 Long term (current) use of anticoagulants; Z86.711 Personal history of pulmonary embolism; Z79.899 Other long term (current) drug therapy; Z88.0 Allergy status to penicillin; Z90.49 Acquired absence of other specified parts of digestive tract; Z98.890 Other specified postprocedural states; Z98.51 Tubal ligation status; Z86.718 Personal history of other venous thrombosis and embolism
CPT/HCPCS: 0241U; 36415; 36430; 70450; 71045; 71260; 74177; 80048; 80053; 80305-QW; 80307; 81001; 82150; 82274; 83605; 83690; 83735; 84100; 84443; 84484; 85025; 85610; 85730; 86140; 86850; 86900; 86901; 86920; 86922; 87040; 93005; 93010; 96372; 97162-GP; 99284; 99285; A9270-GY; J3430; J3490; P9016; Q9967

== ENCOUNTER 2022-08-31 11:27 | Inpatient (IN) | payer MEDICAID, MEDICARE ==
[~2022-08-31 11:27] MED LIST: Ascorbic Acid 500 MG Tab PO SCH; Cholecalciferol (Vitamin D3) 25 MCG Tab PO SCH; Cyanocobalamin (Vitamin B12) 1,000 MCG Tab PO SCH; Docusate Sodium 100 MG Cap PO SCH; Ezetimibe 10 MG Tab PO SCH; LORazepam 1 MG Tab PO SCH; QUEtiapine 100 MG Tab PO PRN; amLODIPine 10 MG Tab PO SCH
[2022-08-31] MEDS: LORazepam 1 MG Tab PO SCH ×3 (13:33→20:58)
[2022-08-31] MEDS: Acetaminophen 325 MG Tab PO PRN ×2 (14:06→20:01)
[2022-08-31] MEDS: atorvaSTATin 10 MG Tab PO SCH (17:27)
[2022-08-31] MEDS: Sertraline 100 MG Tab PO SCH (20:57)
[2022-08-31] MEDS: Mirtazapine 30 MG Tab PO SCH (20:58)
[2022-08-31] MEDS: Docusate Sodium 100 MG Cap PO SCH (20:58)
[2022-08-31] MEDS: Tamsulosin 0.4 MG Cap.ER PO SCH (20:58)
[2022-08-31] MEDS: QUEtiapine 100 MG Tab PO SCH (20:59)
[2022-09-01] MEDS: Omeprazole 20 MG Cap.CR PO SCH (06:38)
[2022-09-01 06:52] LABS: BASOPHILS PERCENT AUTO 0.4 % (0.2-1.2); EOSINOPHILS ABSOLUTE AUTO 0.1 x10^3/uL (0.0-0.5); EOSINOPHILS PERCENT AUTO 2.1 % (0.0-4.0); IMMATURE GRAN ABSOLUTE AUTO 0.02 x10^3/uL (0.00-0.07); LYMPHOCYTES ABSOLUTE AUTO 1.6 x10^3/uL (1.0-4.8); MEAN CORPUSCULAR HEMOGLOBIN 31.7 pg (26.0-32.0); MEAN CORPUSCULAR HGB CONC 33.3 g/dL (32.0-36.0); MEAN CORPUSCULAR VOLUME 95.1 fL (78.0-93.0); MONOCYTES ABSOLUTE AUTO 0.7 x10^3/uL (0.0-0.8); MONOCYTES PERCENT AUTO 12.8 % (2.0-11.0); NEUTROPHILS ABSOLUTE AUTO 3.2 x10^3/uL (1.8-7.7); NEUTROPHILS PERCENT AUTO 56.3 % (50.0-80.0); PLATELET COUNT,PLT 299 x10^3/uL (130-400); RED BLOOD CELL COUNT 2.84 x10^6/uL (4.00-5.50); WHITE BLOOD CELL COUNT,WBC 5.6 x10^3/uL (4.0-10.0)
[2022-09-01 07:08] LABS: PROTHROMBIN TIME 10.7 SEC (9.5-12.2)
[2022-09-01] MEDS: Multivitamin Tab PO SCH (08:53)
[2022-09-01] MEDS: QUEtiapine 100 MG Tab PO SCH ×2 (08:54→21:07)
[2022-09-01] MEDS: Ezetimibe 10 MG Tab PO SCH (08:54)
[2022-09-01] MEDS: Cholecalciferol (Vitamin D3) 25 MCG Tab PO SCH (08:54)
[2022-09-01] MEDS: Cyanocobalamin (Vitamin B12) 1,000 MCG Tab PO SCH (08:55)
[2022-09-01] MEDS: Topiramate 50 MG Tab PO SCH (08:55)
[2022-09-01] MEDS: Docusate Sodium 100 MG Cap PO SCH ×2 (08:56→20:36)
[2022-09-01] MEDS: LORazepam 1 MG Tab PO SCH (08:57)
[2022-09-01] MEDS: amLODIPine 10 MG Tab PO SCH (08:59)
[2022-09-01] MEDS: Ascorbic Acid 500 MG Tab PO SCH (08:59)
[2022-09-01] MEDS ORDERED: Lisinopril 10 MG Tab PO SCH (09:00)
[2022-09-01] MEDS: LORazepam 0.5 MG Tab PO SCH ×3 (12:43→21:08)
[2022-09-01] MEDS ORDERED: Polyethylene Glycol/Electrolytes 4,000 ML Bottle PO ONE (16:00)
[2022-09-01] MEDS: Acetaminophen 325 MG Tab PO PRN (17:34)
[2022-09-01] MEDS: atorvaSTATin 10 MG Tab PO SCH (17:34)
[2022-09-01] MEDS: Mirtazapine 30 MG Tab PO SCH (21:07)
[2022-09-01] MEDS: Tamsulosin 0.4 MG Cap.ER PO SCH (21:08)
[2022-09-01] MEDS: Sertraline 100 MG Tab PO SCH (21:08)
[2022-09-02] MEDS: Omeprazole 20 MG Cap.CR PO SCH ×2 (06:30→21:17)
[2022-09-02 07:04] LABS: BASOPHILS PERCENT AUTO 0.5 % (0.2-1.2); EOSINOPHILS ABSOLUTE AUTO 0.1 x10^3/uL (0.0-0.5); EOSINOPHILS PERCENT AUTO 1.6 % (0.0-4.0); HEMATOCRIT 29.2 % (33.0-47.0); HEMOGLOBIN 9.6 g/dL (12.0-16.0); IMMATURE GRAN ABSOLUTE AUTO 0.03 x10^3/uL (0.00-0.07); LYMPHOCYTES ABSOLUTE AUTO 1.4 x10^3/uL (1.0-4.8); LYMPHOCYTES PERCENT AUTO 21.8 % (25.0-50.0); MEAN CORPUSCULAR HEMOGLOBIN 31.4 pg (26.0-32.0); MEAN CORPUSCULAR HGB CONC 32.9 g/dL (32.0-36.0); MEAN CORPUSCULAR VOLUME 95.4 fL (78.0-93.0); MONOCYTES ABSOLUTE AUTO 0.9 x10^3/uL (0.0-0.8); MONOCYTES PERCENT AUTO 14.7 % (2.0-11.0); NEUTROPHILS ABSOLUTE AUTO 3.9 x10^3/uL (1.8-7.7); NEUTROPHILS PERCENT AUTO 60.9 % (50.0-80.0); PLATELET COUNT,PLT 356 x10^3/uL (130-400); RED BLOOD CELL COUNT 3.06 x10^6/uL (4.00-5.50); WHITE BLOOD CELL COUNT,WBC 6.4 x10^3/uL (4.0-10.0)
[2022-09-02 07:31] LABS: PROTHROMBIN TIME 10.8 SEC (9.5-12.2)
[2022-09-02] MEDS ORDERED: Lactated Ringers 1,000 ML IV SCH (09:00)
[2022-09-02] MEDS: Ezetimibe 10 MG Tab PO SCH (09:50)
[2022-09-02] MEDS: Topiramate 50 MG Tab PO SCH (09:50)
[2022-09-02] MEDS: amLODIPine 10 MG Tab PO SCH (09:51)
[2022-09-02] MEDS: QUEtiapine 100 MG Tab PO SCH ×2 (09:51→21:18)
[2022-09-02] MEDS: Multivitamin Tab PO SCH (09:52)
[2022-09-02] MEDS: Docusate Sodium 100 MG Cap PO SCH ×2 (09:52→21:18)
[2022-09-02] MEDS: LORazepam 0.5 MG Tab PO SCH ×4 (09:52→21:19)
[2022-09-02] MEDS: Ascorbic Acid 500 MG Tab PO SCH (09:53)
[2022-09-02] MEDS: Cyanocobalamin (Vitamin B12) 1,000 MCG Tab PO SCH (09:53)
[2022-09-02] MEDS: Cholecalciferol (Vitamin D3) 25 MCG Tab PO SCH (09:53)
[2022-09-02] MEDS ORDERED: Propofol 200 MG/20 ML SDV ONE ×2 (13:34→14:52)
[2022-09-02] MEDS ORDERED: fentaNYL 100 MCG/2 ML SDV ONE (13:34)
[2022-09-02] MEDS: atorvaSTATin 10 MG Tab PO SCH (17:36)
[2022-09-02] MEDS: Sertraline 100 MG Tab PO SCH (21:17)
[2022-09-02] MEDS: Tamsulosin 0.4 MG Cap.ER PO SCH (21:17)
[2022-09-02] MEDS: Mirtazapine 30 MG Tab PO SCH (21:18)
[2022-09-03 06:56] LABS: BASOPHILS PERCENT AUTO 0.4 % (0.2-1.2); EOSINOPHILS ABSOLUTE AUTO 0.1 x10^3/uL (0.0-0.5); EOSINOPHILS PERCENT AUTO 1.3 % (0.0-4.0); HEMATOCRIT 28.3 % (33.0-47.0); HEMOGLOBIN 9.5 g/dL (12.0-16.0); IMMATURE GRAN ABSOLUTE AUTO 0.01 x10^3/uL (0.00-0.07); LYMPHOCYTES ABSOLUTE AUTO 1.4 x10^3/uL (1.0-4.8); LYMPHOCYTES PERCENT AUTO 19.9 % (25.0-50.0); MEAN CORPUSCULAR HEMOGLOBIN 31.8 pg (26.0-32.0); MEAN CORPUSCULAR HGB CONC 33.6 g/dL (32.0-36.0); MEAN CORPUSCULAR VOLUME 94.6 fL (78.0-93.0); MONOCYTES ABSOLUTE AUTO 0.8 x10^3/uL (0.0-0.8); MONOCYTES PERCENT AUTO 11.9 % (2.0-11.0); NEUTROPHILS ABSOLUTE AUTO 4.7 x10^3/uL (1.8-7.7); NEUTROPHILS PERCENT AUTO 66.4 % (50.0-80.0); PLATELET COUNT,PLT 393 x10^3/uL (130-400); RED BLOOD CELL COUNT 2.99 x10^6/uL (4.00-5.50); WHITE BLOOD CELL COUNT,WBC 7.1 x10^3/uL (4.0-10.0)
[2022-09-03] MEDS: Cholecalciferol (Vitamin D3) 25 MCG Tab PO SCH (08:59)
[2022-09-03] MEDS: Ezetimibe 10 MG Tab PO SCH (08:59)
[2022-09-03] MEDS: Omeprazole 20 MG Cap.CR PO SCH ×2 (08:59→21:41)
[2022-09-03] MEDS: Topiramate 50 MG Tab PO SCH (09:00)
[2022-09-03] MEDS: Ascorbic Acid 500 MG Tab PO SCH (09:00)
[2022-09-03] MEDS: amLODIPine 10 MG Tab PO SCH (09:00)
[2022-09-03] MEDS: Multivitamin Tab PO SCH (09:00)
[2022-09-03] MEDS: LORazepam 0.5 MG Tab PO SCH ×4 (09:01→21:40)
[2022-09-03] MEDS: QUEtiapine 100 MG Tab PO SCH ×2 (09:01→21:40)
[2022-09-03] MEDS: Docusate Sodium 100 MG Cap PO SCH ×2 (09:01→21:39)
[2022-09-03] MEDS: Cyanocobalamin (Vitamin B12) 1,000 MCG Tab PO SCH (09:01)
[2022-09-03] MEDS: atorvaSTATin 10 MG Tab PO SCH (17:50)
[2022-09-03] MEDS: Mirtazapine 30 MG Tab PO SCH (21:40)
[2022-09-03] MEDS: Tamsulosin 0.4 MG Cap.ER PO SCH (21:41)
[2022-09-03] MEDS: Sertraline 100 MG Tab PO SCH (21:41)
[2022-09-04 08:11] LABS: INR 0.9 (2.0-3.5); PROTHROMBIN TIME 10.2 SEC (9.5-12.2)
[2022-09-04] MEDS: Omeprazole 20 MG Cap.CR PO SCH ×2 (08:43→20:03)
[2022-09-04] MEDS: amLODIPine 10 MG Tab PO SCH (08:44)
[2022-09-04] MEDS: Enoxaparin 40 MG/0.4 ML Syringe SUBCUT SCH (08:44)
[2022-09-04] MEDS: Topiramate 50 MG Tab PO SCH (08:44)
[2022-09-04] MEDS: Ascorbic Acid 500 MG Tab PO SCH (08:44)
[2022-09-04] MEDS: QUEtiapine 100 MG Tab PO SCH ×2 (08:44→20:03)
[2022-09-04] MEDS: Multivitamin Tab PO SCH (08:45)
[2022-09-04] MEDS: Ezetimibe 10 MG Tab PO SCH (08:45)
[2022-09-04] MEDS: Cyanocobalamin (Vitamin B12) 1,000 MCG Tab PO SCH (08:45)
[2022-09-04] MEDS: Docusate Sodium 100 MG Cap PO SCH ×2 (08:45→21:49)
[2022-09-04] MEDS: LORazepam 0.5 MG Tab PO SCH ×4 (08:45→20:04)
[2022-09-04] MEDS: Cholecalciferol (Vitamin D3) 25 MCG Tab PO SCH (08:46)
[2022-09-04] MEDS: atorvaSTATin 10 MG Tab PO SCH (17:27)
[2022-09-04] MEDS ORDERED: Warfarin 2 MG Tab PO ONE (20:00)
[2022-09-04] MEDS: Mirtazapine 30 MG Tab PO SCH (20:04)
[2022-09-04] MEDS: Sertraline 100 MG Tab PO SCH (20:04)
[2022-09-04] MEDS: Tamsulosin 0.4 MG Cap.ER PO SCH (20:05)
[2022-09-05 08:01] LABS: INR 0.9 (2.0-3.5); PROTHROMBIN TIME 10.2 SEC (9.5-12.2)
[2022-09-05] MEDS: Docusate Sodium 100 MG Cap PO SCH ×2 (08:34→20:49)
[2022-09-05] MEDS: Topiramate 50 MG Tab PO SCH (08:43)
[2022-09-05] MEDS: amLODIPine 10 MG Tab PO SCH (08:43)
[2022-09-05] MEDS: Cholecalciferol (Vitamin D3) 25 MCG Tab PO SCH (08:43)
[2022-09-05] MEDS: QUEtiapine 100 MG Tab PO SCH ×2 (08:43→20:51)
[2022-09-05] MEDS: Cyanocobalamin (Vitamin B12) 1,000 MCG Tab PO SCH (08:43)
[2022-09-05] MEDS: Enoxaparin 40 MG/0.4 ML Syringe SUBCUT SCH (08:44)
[2022-09-05] MEDS: Omeprazole 20 MG Cap.CR PO SCH ×2 (08:44→20:50)
[2022-09-05] MEDS: LORazepam 0.5 MG Tab PO SCH ×4 (08:44→20:51)
[2022-09-05] MEDS: Multivitamin Tab PO SCH (08:44)
[2022-09-05] MEDS: Ascorbic Acid 500 MG Tab PO SCH (08:44)
[2022-09-05] MEDS: Ezetimibe 10 MG Tab PO SCH (08:44)
[2022-09-05] MEDS: atorvaSTATin 10 MG Tab PO SCH (17:23)
[2022-09-05] MEDS ORDERED: Warfarin 2 MG Tab PO ONE (20:00)
[2022-09-05] MEDS: Sertraline 100 MG Tab PO SCH (20:50)
[2022-09-05] MEDS: Tamsulosin 0.4 MG Cap.ER PO SCH (20:50)
[2022-09-05] MEDS: Mirtazapine 30 MG Tab PO SCH (20:50)
[2022-09-06 07:17] LABS: INR 0.9 (2.0-3.5)
[2022-09-06] MEDS: amLODIPine 10 MG Tab PO SCH (08:33)
[2022-09-06] MEDS: Enoxaparin 40 MG/0.4 ML Syringe SUBCUT SCH (08:33)
[2022-09-06] MEDS: LORazepam 0.5 MG Tab PO SCH ×4 (08:34→20:17)
[2022-09-06] MEDS: Ascorbic Acid 500 MG Tab PO SCH (08:34)
[2022-09-06] MEDS: Multivitamin Tab PO SCH (08:34)
[2022-09-06] MEDS: Docusate Sodium 100 MG Cap PO SCH ×2 (08:34→20:21)
[2022-09-06] MEDS: Cholecalciferol (Vitamin D3) 25 MCG Tab PO SCH (08:34)
[2022-09-06] MEDS: Omeprazole 20 MG Cap.CR PO SCH ×2 (08:34→20:17)
[2022-09-06] MEDS: Ezetimibe 10 MG Tab PO SCH (08:34)
[2022-09-06] MEDS: QUEtiapine 100 MG Tab PO SCH ×2 (08:34→20:17)
[2022-09-06] MEDS: Topiramate 50 MG Tab PO SCH (08:34)
[2022-09-06] MEDS: Cyanocobalamin (Vitamin B12) 1,000 MCG Tab PO SCH (08:34)
[2022-09-06 09:05] LABS: BASOPHILS PERCENT AUTO 0.5 % (0.2-1.2); EOSINOPHILS ABSOLUTE AUTO 0.1 x10^3/uL (0.0-0.5); EOSINOPHILS PERCENT AUTO 0.8 % (0.0-4.0); HEMATOCRIT 29.6 % (33.0-47.0); HEMOGLOBIN 9.8 g/dL (12.0-16.0); IMMATURE GRAN ABSOLUTE AUTO 0.02 x10^3/uL (0.00-0.07); LYMPHOCYTES ABSOLUTE AUTO 1.9 x10^3/uL (1.0-4.8); LYMPHOCYTES PERCENT AUTO 25.9 % (25.0-50.0); MEAN CORPUSCULAR HEMOGLOBIN 32.2 pg (26.0-32.0); MEAN CORPUSCULAR HGB CONC 33.1 g/dL (32.0-36.0); MEAN CORPUSCULAR VOLUME 97.4 fL (78.0-93.0); MONOCYTES ABSOLUTE AUTO 0.8 x10^3/uL (0.0-0.8); MONOCYTES PERCENT AUTO 10.5 % (2.0-11.0); NEUTROPHILS ABSOLUTE AUTO 4.5 x10^3/uL (1.8-7.7); PLATELET COUNT,PLT 533 x10^3/uL (130-400); RED BLOOD CELL COUNT 3.04 x10^6/uL (4.00-5.50); WHITE BLOOD CELL COUNT,WBC 7.3 x10^3/uL (4.0-10.0)
[2022-09-06] MEDS: Acetaminophen 325 MG Tab PO PRN ×2 (11:27→20:18)
[2022-09-06] MEDS: atorvaSTATin 10 MG Tab PO SCH (17:38)
[2022-09-06] MEDS ORDERED: Warfarin 2 MG Tab PO ONE (20:00)
[2022-09-06] MEDS: Mirtazapine 30 MG Tab PO SCH (20:16)
[2022-09-06] MEDS: Sertraline 100 MG Tab PO SCH (20:17)
[2022-09-06] MEDS: Tamsulosin 0.4 MG Cap.ER PO SCH (20:17)
[2022-09-07 07:16] LABS: PROTHROMBIN TIME 10.3 SEC (9.5-12.2)
[2022-09-07] MEDS: Cholecalciferol (Vitamin D3) 25 MCG Tab PO SCH (08:09)
[2022-09-07] MEDS: Omeprazole 20 MG Cap.CR PO SCH ×2 (08:09→20:08)
[2022-09-07] MEDS: Topiramate 50 MG Tab PO SCH (08:10)
[2022-09-07] MEDS: Ascorbic Acid 500 MG Tab PO SCH (08:10)
[2022-09-07] MEDS: Docusate Sodium 100 MG Cap PO SCH ×2 (08:11→20:08)
[2022-09-07] MEDS: amLODIPine 10 MG Tab PO SCH (08:11)
[2022-09-07] MEDS: Ezetimibe 10 MG Tab PO SCH (08:11)
[2022-09-07] MEDS: Multivitamin Tab PO SCH (08:12)
[2022-09-07] MEDS: Cyanocobalamin (Vitamin B12) 1,000 MCG Tab PO SCH (08:12)
[2022-09-07] MEDS: QUEtiapine 100 MG Tab PO SCH ×2 (08:12→20:09)
[2022-09-07] MEDS: LORazepam 0.5 MG Tab PO SCH ×4 (08:13→20:08)
[2022-09-07] MEDS: Enoxaparin 40 MG/0.4 ML Syringe SUBCUT SCH (08:13)
[2022-09-07] MEDS: atorvaSTATin 10 MG Tab PO SCH (17:41)
[2022-09-07] MEDS ORDERED: Warfarin 2 MG Tab PO ONE (20:00)
[2022-09-07] MEDS: Sertraline 100 MG Tab PO SCH (20:08)
[2022-09-07] MEDS: Tamsulosin 0.4 MG Cap.ER PO SCH (20:08)
[2022-09-07] MEDS: Mirtazapine 30 MG Tab PO SCH (20:08)
[2022-09-08] MEDS: Acetaminophen 325 MG Tab PO PRN (05:20)
[2022-09-08 07:03] LABS: PROTHROMBIN TIME 11.1 SEC (9.5-12.2)
[2022-09-08] MEDS: LORazepam 0.5 MG Tab PO SCH ×4 (09:51→20:12)
[2022-09-08] MEDS: amLODIPine 10 MG Tab PO SCH (09:51)
[2022-09-08] MEDS: Topiramate 50 MG Tab PO SCH (09:51)
[2022-09-08] MEDS: QUEtiapine 100 MG Tab PO SCH ×2 (09:51→20:12)
[2022-09-08] MEDS: Ezetimibe 10 MG Tab PO SCH (09:51)
[2022-09-08] MEDS: Docusate Sodium 100 MG Cap PO SCH ×2 (09:52→20:12)
[2022-09-08] MEDS: Ascorbic Acid 500 MG Tab PO SCH (09:52)
[2022-09-08] MEDS: Multivitamin Tab PO SCH (09:52)
[2022-09-08] MEDS: Omeprazole 20 MG Cap.CR PO SCH ×2 (09:52→20:13)
[2022-09-08] MEDS: Cholecalciferol (Vitamin D3) 25 MCG Tab PO SCH (09:52)
[2022-09-08] MEDS: Enoxaparin 40 MG/0.4 ML Syringe SUBCUT SCH (09:52)
[2022-09-08] MEDS: Cyanocobalamin (Vitamin B12) 1,000 MCG Tab PO SCH (09:52)
[2022-09-08] MEDS: atorvaSTATin 10 MG Tab PO SCH (17:39)
[2022-09-08] MEDS ORDERED: Warfarin 5 MG Tab PO ONE (20:00)
[2022-09-08] MEDS: Tamsulosin 0.4 MG Cap.ER PO SCH (20:12)
[2022-09-08] MEDS: Sertraline 100 MG Tab PO SCH (20:13)
[2022-09-08] MEDS: Mirtazapine 30 MG Tab PO SCH (20:13)
[2022-09-09 06:56] LABS: BASOPHILS PERCENT AUTO 0.3 % (0.2-1.2); EOSINOPHILS ABSOLUTE AUTO 0.1 x10^3/uL (0.0-0.5); EOSINOPHILS PERCENT AUTO 0.8 % (0.0-4.0); HEMATOCRIT 27.7 % (33.0-47.0); HEMOGLOBIN 9.1 g/dL (12.0-16.0); IMMATURE GRAN ABSOLUTE AUTO 0.01 x10^3/uL (0.00-0.07); LYMPHOCYTES ABSOLUTE AUTO 1.7 x10^3/uL (1.0-4.8); LYMPHOCYTES PERCENT AUTO 27.9 % (25.0-50.0); MEAN CORPUSCULAR HEMOGLOBIN 31.3 pg (26.0-32.0); MEAN CORPUSCULAR HGB CONC 32.9 g/dL (32.0-36.0); MEAN CORPUSCULAR VOLUME 95.2 fL (78.0-93.0); MONOCYTES ABSOLUTE AUTO 0.5 x10^3/uL (0.0-0.8); MONOCYTES PERCENT AUTO 8.8 % (2.0-11.0); NEUTROPHILS ABSOLUTE AUTO 3.7 x10^3/uL (1.8-7.7); PLATELET COUNT,PLT 488 x10^3/uL (130-400); RED BLOOD CELL COUNT 2.91 x10^6/uL (4.00-5.50)
[2022-09-09 07:11] LABS: INR 1.3 (2.0-3.5); PROTHROMBIN TIME 13.4 SEC (9.5-12.2)
[2022-09-09] MEDS: Omeprazole 20 MG Cap.CR PO SCH ×2 (08:04→20:43)
[2022-09-09] MEDS: Cholecalciferol (Vitamin D3) 25 MCG Tab PO SCH (08:04)
[2022-09-09] MEDS: Enoxaparin 40 MG/0.4 ML Syringe SUBCUT SCH (08:04)
[2022-09-09] MEDS: Multivitamin Tab PO SCH (08:05)
[2022-09-09] MEDS: Docusate Sodium 100 MG Cap PO SCH ×2 (08:05→20:43)
[2022-09-09] MEDS: Topiramate 50 MG Tab PO SCH (08:05)
[2022-09-09] MEDS: Cyanocobalamin (Vitamin B12) 1,000 MCG Tab PO SCH (08:05)
[2022-09-09] MEDS: amLODIPine 10 MG Tab PO SCH (08:05)
[2022-09-09] MEDS: Ascorbic Acid 500 MG Tab PO SCH (08:05)
[2022-09-09] MEDS: LORazepam 0.5 MG Tab PO SCH ×4 (08:06→20:43)
[2022-09-09] MEDS: Ezetimibe 10 MG Tab PO SCH (08:06)
[2022-09-09] MEDS: QUEtiapine 100 MG Tab PO SCH ×2 (08:06→20:45)
[2022-09-09] MEDS: atorvaSTATin 10 MG Tab PO SCH (17:37)
[2022-09-09] MEDS ORDERED: Warfarin 5 MG Tab PO ONE (20:00)
[2022-09-09] MEDS: Sertraline 100 MG Tab PO SCH (20:43)
[2022-09-09] MEDS: Mirtazapine 30 MG Tab PO SCH (20:44)
[2022-09-09] MEDS: Tamsulosin 0.4 MG Cap.ER PO SCH (20:44)
[2022-09-10 07:03] LABS: INR 1.5 (2.0-3.5)
[2022-09-10] MEDS: Omeprazole 20 MG Cap.CR PO SCH ×2 (08:27→20:38)
[2022-09-10] MEDS: Cyanocobalamin (Vitamin B12) 1,000 MCG Tab PO SCH (08:27)
[2022-09-10] MEDS: Multivitamin Tab PO SCH (08:28)
[2022-09-10] MEDS: QUEtiapine 100 MG Tab PO SCH ×2 (08:28→20:38)
[2022-09-10] MEDS: Ezetimibe 10 MG Tab PO SCH (08:28)
[2022-09-10] MEDS: Ascorbic Acid 500 MG Tab PO SCH (08:28)
[2022-09-10] MEDS: Cholecalciferol (Vitamin D3) 25 MCG Tab PO SCH (08:28)
[2022-09-10] MEDS: Topiramate 50 MG Tab PO SCH (08:28)
[2022-09-10] MEDS: LORazepam 0.5 MG Tab PO SCH ×4 (08:29→20:38)
[2022-09-10] MEDS: amLODIPine 10 MG Tab PO SCH (08:29)
[2022-09-10] MEDS: Enoxaparin 40 MG/0.4 ML Syringe SUBCUT SCH (08:29)
[2022-09-10] MEDS: Docusate Sodium 100 MG Cap PO SCH ×2 (08:30→20:37)
[2022-09-10] MEDS: atorvaSTATin 10 MG Tab PO SCH (17:31)
[2022-09-10] MEDS: Acetaminophen 325 MG Tab PO PRN (17:32)
[2022-09-10] MEDS ORDERED: Warfarin 5 MG Tab PO ONE (20:00)
[2022-09-10] MEDS: Sertraline 100 MG Tab PO SCH (20:37)
[2022-09-10] MEDS: Mirtazapine 30 MG Tab PO SCH (20:37)
[2022-09-10] MEDS: Tamsulosin 0.4 MG Cap.ER PO SCH (20:38)
[2022-09-11 08:12] LABS: INR 1.5 (2.0-3.5); PROTHROMBIN TIME 16.3 SEC (9.5-12.2)
[2022-09-11] MEDS: Ezetimibe 10 MG Tab PO SCH (08:22)
[2022-09-11] MEDS: Ascorbic Acid 500 MG Tab PO SCH (08:23)
[2022-09-11] MEDS: Topiramate 50 MG Tab PO SCH (08:23)
[2022-09-11] MEDS: amLODIPine 10 MG Tab PO SCH (08:23)
[2022-09-11] MEDS: LORazepam 0.5 MG Tab PO SCH ×4 (08:23→20:14)
[2022-09-11] MEDS: Docusate Sodium 100 MG Cap PO SCH ×2 (08:23→20:13)
[2022-09-11] MEDS: QUEtiapine 100 MG Tab PO SCH ×2 (08:23→20:15)
[2022-09-11] MEDS: Multivitamin Tab PO SCH (08:23)
[2022-09-11] MEDS: Cyanocobalamin (Vitamin B12) 1,000 MCG Tab PO SCH (08:24)
[2022-09-11] MEDS: Omeprazole 20 MG Cap.CR PO SCH ×2 (08:24→20:13)
[2022-09-11] MEDS: Cholecalciferol (Vitamin D3) 25 MCG Tab PO SCH (08:24)
[2022-09-11] MEDS: Enoxaparin 40 MG/0.4 ML Syringe SUBCUT SCH (08:24)
[2022-09-11] MEDS: Acetaminophen 325 MG Tab PO PRN (12:26)
[2022-09-11] MEDS: atorvaSTATin 10 MG Tab PO SCH (17:32)
[2022-09-11] MEDS ORDERED: Warfarin 5 MG Tab PO ONE (20:00)
[2022-09-11] MEDS: Tamsulosin 0.4 MG Cap.ER PO SCH (20:13)
[2022-09-11] MEDS: Sertraline 100 MG Tab PO SCH (20:14)
[2022-09-11] MEDS: Mirtazapine 30 MG Tab PO SCH (20:14)
[2022-09-12 08:02] LABS: INR 1.7 (2.0-3.5)
[2022-09-12] MEDS: Enoxaparin 40 MG/0.4 ML Syringe SUBCUT SCH (08:12)
[2022-09-12] MEDS: Cholecalciferol (Vitamin D3) 25 MCG Tab PO SCH (08:13)
[2022-09-12] MEDS: Omeprazole 20 MG Cap.CR PO SCH ×2 (08:13→20:08)
[2022-09-12] MEDS: Topiramate 50 MG Tab PO SCH (08:13)
[2022-09-12] MEDS: QUEtiapine 100 MG Tab PO SCH ×2 (08:13→20:08)
[2022-09-12] MEDS: LORazepam 0.5 MG Tab PO SCH ×4 (08:14→20:08)
[2022-09-12] MEDS: Ascorbic Acid 500 MG Tab PO SCH (08:14)
[2022-09-12] MEDS: Ezetimibe 10 MG Tab PO SCH (08:14)
[2022-09-12] MEDS: Docusate Sodium 100 MG Cap PO SCH ×2 (08:14→20:08)
[2022-09-12] MEDS: amLODIPine 10 MG Tab PO SCH (08:14)
[2022-09-12] MEDS: Cyanocobalamin (Vitamin B12) 1,000 MCG Tab PO SCH (08:14)
[2022-09-12] MEDS: Multivitamin Tab PO SCH (08:14)
[2022-09-12] MEDS: atorvaSTATin 10 MG Tab PO SCH (17:57)
[2022-09-12] MEDS ORDERED: Warfarin 5 MG Tab PO ONE (20:00)
[2022-09-12] MEDS: Tamsulosin 0.4 MG Cap.ER PO SCH (20:08)
[2022-09-12] MEDS: Sertraline 100 MG Tab PO SCH (20:08)
[2022-09-12] MEDS: Mirtazapine 30 MG Tab PO SCH (20:09)
[2022-09-13 06:48] LABS: INR 1.6 (2.0-3.5); PROTHROMBIN TIME 17.4 SEC (9.5-12.2)
[2022-09-13] MEDS: Enoxaparin 40 MG/0.4 ML Syringe SUBCUT SCH (08:05)
[2022-09-13] MEDS: Omeprazole 20 MG Cap.CR PO SCH ×2 (08:05→20:15)
[2022-09-13] MEDS: LORazepam 0.5 MG Tab PO SCH ×2 (08:06→12:12)
[2022-09-13] MEDS: Cholecalciferol (Vitamin D3) 25 MCG Tab PO SCH (08:06)
[2022-09-13] MEDS: Topiramate 50 MG Tab PO SCH (08:06)
[2022-09-13] MEDS: amLODIPine 10 MG Tab PO SCH (08:07)
[2022-09-13] MEDS: Multivitamin Tab PO SCH (08:07)
[2022-09-13] MEDS: Ezetimibe 10 MG Tab PO SCH (08:08)
[2022-09-13] MEDS: QUEtiapine 100 MG Tab PO SCH (08:08)
[2022-09-13] MEDS: Docusate Sodium 100 MG Cap PO SCH ×2 (08:08→20:15)
[2022-09-13] MEDS: Ascorbic Acid 500 MG Tab PO SCH (08:08)
[2022-09-13] MEDS: Cyanocobalamin (Vitamin B12) 1,000 MCG Tab PO SCH (08:10)
[2022-09-13] MEDS: LORazepam 1 MG Tab (OWN SUPPLY) PO SCH ×2 (17:00→20:16)
[2022-09-13] MEDS: QUETIAPINE 300 MG PO SCH (17:02)
[2022-09-13] MEDS: atorvaSTATin 10 MG Tab PO SCH (17:07)
[2022-09-13] MEDS: TOPIRAMATE 100 MG PO SCH (20:18)
[2022-09-13] MEDS: Tamsulosin 0.4 MG Cap.ER (OWN SUPPLY) PO SCH (20:18)
[2022-09-13] MEDS: MIRTAZAPINE 30 MG PO SCH (20:19)
[2022-09-13] MEDS: Sertraline 100 MG Tab (OWN SUPPLY) PO SCH (20:21)
[2022-09-13] MEDS ORDERED: WARFARIN 3 MG PO SCH (21:00)
[2022-09-14 07:13] LABS: INR 1.9 (2.0-3.5); PROTHROMBIN TIME 20.2 SEC (9.5-12.2)
[2022-09-14] MEDS: LORazepam 1 MG Tab (OWN SUPPLY) PO SCH ×4 (08:04→20:04)
[2022-09-14] MEDS: EZETIMIBE 10 MG PO SCH (08:05)
[2022-09-14] MEDS: amLODIPine 10 MG Tab (OWN SUPPLY) PO SCH (08:06)
[2022-09-14] MEDS: Omeprazole 20 MG Cap.CR PO SCH ×2 (08:16→20:08)
[2022-09-14] MEDS: Docusate Sodium 100 MG Cap PO SCH ×2 (08:19→20:07)
[2022-09-14] MEDS: Cyanocobalamin (Vitamin B12) 1,000 MCG Tab PO SCH (08:19)
[2022-09-14] MEDS: Cholecalciferol (Vitamin D3) 25 MCG Tab PO SCH (08:19)
[2022-09-14] MEDS: Multivitamin Tab PO SCH (08:20)
[2022-09-14] MEDS: Ascorbic Acid 500 MG Tab PO SCH (08:21)
[2022-09-14] MEDS: Enoxaparin 40 MG/0.4 ML Syringe (OWN SUPPLY) SUBCUT SCH (08:45)
[2022-09-14] MEDS: QUETIAPINE 300 MG PO SCH (17:24)
[2022-09-14] MEDS: WARFARIN 3 MG PO SCH (17:37)
[2022-09-14] MEDS: Sertraline 100 MG Tab (OWN SUPPLY) PO SCH (20:05)
[2022-09-14] MEDS: Tamsulosin 0.4 MG Cap.ER (OWN SUPPLY) PO SCH (20:06)
[2022-09-14] MEDS: TOPIRAMATE 100 MG PO SCH (20:06)
[2022-09-14] MEDS: MIRTAZAPINE 30 MG PO SCH (20:07)
[2022-09-15 07:14] LABS: INR 2.1 (2.0-3.5); PROTHROMBIN TIME 21.7 SEC (9.5-12.2)
[2022-09-15] MEDS: amLODIPine 10 MG Tab (OWN SUPPLY) PO SCH (08:43)
[2022-09-15] MEDS: LORazepam 1 MG Tab (OWN SUPPLY) PO SCH ×4 (08:43→20:43)
[2022-09-15] MEDS: EZETIMIBE 10 MG PO SCH (08:47)
[2022-09-15] MEDS: Ascorbic Acid 500 MG Tab PO SCH (08:49)
[2022-09-15] MEDS: Multivitamin Tab PO SCH (08:50)
[2022-09-15] MEDS: Cyanocobalamin (Vitamin B12) 1,000 MCG Tab PO SCH (08:51)
[2022-09-15] MEDS: Omeprazole 20 MG Cap.CR PO SCH ×2 (08:51→20:40)
[2022-09-15] MEDS: Docusate Sodium 100 MG Cap PO SCH ×2 (08:52→20:40)
[2022-09-15] MEDS: Cholecalciferol (Vitamin D3) 25 MCG Tab PO SCH (08:52)
[2022-09-15] MEDS: Enoxaparin 40 MG/0.4 ML Syringe (OWN SUPPLY) SUBCUT SCH (08:53)
[2022-09-15] MEDS: QUETIAPINE 300 MG PO SCH (17:23)
[2022-09-15] MEDS: WARFARIN 3 MG PO SCH (17:25)
[2022-09-15] MEDS: Tamsulosin 0.4 MG Cap.ER (OWN SUPPLY) PO SCH (20:49)
[2022-09-15] MEDS: TOPIRAMATE 100 MG PO SCH (20:50)
[2022-09-15] MEDS: MIRTAZAPINE 30 MG PO SCH (20:51)
[2022-09-15] MEDS: Sertraline 100 MG Tab (OWN SUPPLY) PO SCH (20:52)
[2022-09-16 07:06] LABS: INR 1.6 (2.0-3.5); PROTHROMBIN TIME 16.6 SEC (9.5-12.2)
[2022-09-16] MEDS: Omeprazole 20 MG Cap.CR PO SCH ×2 (08:50→20:44)
[2022-09-16] MEDS: LORazepam 1 MG Tab (OWN SUPPLY) PO SCH ×4 (08:50→20:50)
[2022-09-16] MEDS: Multivitamin Tab PO SCH (08:51)
[2022-09-16] MEDS: Cholecalciferol (Vitamin D3) 25 MCG Tab PO SCH (08:52)
[2022-09-16] MEDS: Cyanocobalamin (Vitamin B12) 1,000 MCG Tab PO SCH (08:52)
[2022-09-16] MEDS: Ascorbic Acid 500 MG Tab PO SCH (08:52)
[2022-09-16] MEDS: amLODIPine 10 MG Tab (OWN SUPPLY) PO SCH (08:53)
[2022-09-16] MEDS: Docusate Sodium 100 MG Cap PO SCH ×2 (08:55→20:44)
[2022-09-16] MEDS: EZETIMIBE 10 MG PO SCH (08:55)
[2022-09-16] MEDS: Enoxaparin 40 MG/0.4 ML Syringe (OWN SUPPLY) SUBCUT SCH (08:55)
[2022-09-16] MEDS: QUETIAPINE 300 MG PO SCH (17:54)
[2022-09-16] MEDS ORDERED: WARFARIN 3 MG PO ONE (18:00)
[2022-09-16] MEDS: MIRTAZAPINE 30 MG PO SCH (20:46)
[2022-09-16] MEDS: Tamsulosin 0.4 MG Cap.ER (OWN SUPPLY) PO SCH (20:47)
[2022-09-16] MEDS: TOPIRAMATE 100 MG PO SCH (20:47)
[2022-09-16] MEDS: Sertraline 100 MG Tab (OWN SUPPLY) PO SCH (20:48)
[2022-09-17 07:13] LABS: INR 1.4 (2.0-3.5); PROTHROMBIN TIME 14.4 SEC (9.5-12.2)
[2022-09-17] MEDS: Cyanocobalamin (Vitamin B12) 1,000 MCG Tab PO SCH (09:18)
[2022-09-17] MEDS: Ascorbic Acid 500 MG Tab PO SCH (09:18)
[2022-09-17] MEDS: Docusate Sodium 100 MG Cap PO SCH ×2 (09:19→20:38)
[2022-09-17] MEDS: Multivitamin Tab PO SCH (09:19)
[2022-09-17] MEDS: Cholecalciferol (Vitamin D3) 25 MCG Tab PO SCH (09:19)
[2022-09-17] MEDS: EZETIMIBE 10 MG PO SCH (09:20)
[2022-09-17] MEDS: Enoxaparin 40 MG/0.4 ML Syringe (OWN SUPPLY) SUBCUT SCH (09:20)
[2022-09-17] MEDS: amLODIPine 10 MG Tab (OWN SUPPLY) PO SCH (09:27)
[2022-09-17] MEDS: LORazepam 1 MG Tab (OWN SUPPLY) PO SCH ×4 (09:32→20:38)
[2022-09-17] MEDS: Omeprazole 20 MG Cap.CR PO SCH ×2 (10:06→20:37)
[2022-09-17] MEDS ORDERED: WARFARIN 3 MG PO ONE ×2 (18:00→18:30)
[2022-09-17] MEDS: QUETIAPINE 300 MG PO SCH (18:06)
[2022-09-17] MEDS ORDERED: WARFARIN 3 MG PO SCH (19:00)
[2022-09-17] MEDS: Acetaminophen 325 MG Tab PO PRN (20:36)
[2022-09-17] MEDS: MIRTAZAPINE 30 MG PO SCH (20:39)
[2022-09-17] MEDS: TOPIRAMATE 100 MG PO SCH (20:39)
[2022-09-17] MEDS: Tamsulosin 0.4 MG Cap.ER (OWN SUPPLY) PO SCH (20:40)
[2022-09-17] MEDS: Sertraline 100 MG Tab (OWN SUPPLY) PO SCH (20:40)
[2022-09-18 07:59] LABS: INR 1.4 (2.0-3.5); PROTHROMBIN TIME 15.1 SEC (9.5-12.2)
[2022-09-18] MEDS: Omeprazole 20 MG Cap.CR PO SCH ×2 (08:10→20:31)
[2022-09-18] MEDS: Ascorbic Acid 500 MG Tab PO SCH (08:10)
[2022-09-18] MEDS: Multivitamin Tab PO SCH (08:10)
[2022-09-18] MEDS: Cholecalciferol (Vitamin D3) 25 MCG Tab PO SCH (08:10)
[2022-09-18] MEDS: Docusate Sodium 100 MG Cap PO SCH ×2 (08:11→20:29)
[2022-09-18] MEDS: Cyanocobalamin (Vitamin B12) 1,000 MCG Tab PO SCH (08:12)
[2022-09-18] MEDS: LORazepam 1 MG Tab (OWN SUPPLY) PO SCH ×4 (08:13→20:26)
[2022-09-18] MEDS: Enoxaparin 40 MG/0.4 ML Syringe (OWN SUPPLY) SUBCUT SCH (08:14)
[2022-09-18] MEDS: EZETIMIBE 10 MG PO SCH (08:14)
[2022-09-18] MEDS: amLODIPine 10 MG Tab (OWN SUPPLY) PO SCH (08:17)
[2022-09-18] MEDS ORDERED: WARFARIN 3 MG PO ONE ×3 (15:15→18:00)
[2022-09-18] MEDS: QUETIAPINE 300 MG PO SCH (17:28)
[2022-09-18] MEDS: TOPIRAMATE 100 MG PO SCH (20:27)
[2022-09-18] MEDS: Tamsulosin 0.4 MG Cap.ER (OWN SUPPLY) PO SCH (20:27)
[2022-09-18] MEDS: MIRTAZAPINE 30 MG PO SCH (20:28)
[2022-09-18] MEDS: Sertraline 100 MG Tab (OWN SUPPLY) PO SCH (20:28)
[2022-09-19] MEDS: QUETIAPINE 200 MG PO PRN (01:34)
[2022-09-19 08:05] LABS: INR 1.6 (2.0-3.5); PROTHROMBIN TIME 16.9 SEC (9.5-12.2)
[2022-09-19] MEDS: Ascorbic Acid 500 MG Tab PO SCH (08:40)
[2022-09-19] MEDS: Omeprazole 20 MG Cap.CR PO SCH ×2 (08:40→20:58)
[2022-09-19] MEDS: Cyanocobalamin (Vitamin B12) 1,000 MCG Tab PO SCH (08:40)
[2022-09-19] MEDS: Multivitamin Tab PO SCH (08:40)
[2022-09-19] MEDS: Docusate Sodium 100 MG Cap PO SCH ×2 (08:40→20:58)
[2022-09-19] MEDS: Cholecalciferol (Vitamin D3) 25 MCG Tab PO SCH (08:40)
[2022-09-19] MEDS: LORazepam 1 MG Tab (OWN SUPPLY) PO SCH ×4 (08:41→21:01)
[2022-09-19] MEDS: EZETIMIBE 10 MG PO SCH (08:41)
[2022-09-19] MEDS: amLODIPine 10 MG Tab (OWN SUPPLY) PO SCH (08:44)
[2022-09-19] MEDS: Enoxaparin 40 MG/0.4 ML Syringe (OWN SUPPLY) SUBCUT SCH (09:21)
[2022-09-19] MEDS: QUETIAPINE 300 MG PO SCH (17:31)
[2022-09-19] MEDS ORDERED: WARFARIN 3 MG PO ONE (18:00)
[2022-09-19] MEDS: Tamsulosin 0.4 MG Cap.ER (OWN SUPPLY) PO SCH (20:58)
[2022-09-19] MEDS: Sertraline 100 MG Tab (OWN SUPPLY) PO SCH (20:59)
[2022-09-19] MEDS: TOPIRAMATE 100 MG PO SCH (20:59)
[2022-09-19] MEDS: MIRTAZAPINE 30 MG PO SCH (21:00)
[2022-09-20] MEDS: LORazepam 1 MG Tab (OWN SUPPLY) PO SCH ×4 (09:05→20:58)
[2022-09-20] MEDS: EZETIMIBE 10 MG PO SCH (09:06)
[2022-09-20] MEDS: amLODIPine 10 MG Tab (OWN SUPPLY) PO SCH (09:07)
[2022-09-20] MEDS: Cholecalciferol (Vitamin D3) 25 MCG Tab PO SCH (09:08)
[2022-09-20] MEDS: Docusate Sodium 100 MG Cap PO SCH ×2 (09:08→20:54)
[2022-09-20] MEDS: Cyanocobalamin (Vitamin B12) 1,000 MCG Tab PO SCH (09:08)
[2022-09-20] MEDS: Multivitamin Tab PO SCH (09:08)
[2022-09-20] MEDS: Ascorbic Acid 500 MG Tab PO SCH (09:08)
[2022-09-20] MEDS: Enoxaparin 40 MG/0.4 ML Syringe (OWN SUPPLY) SUBCUT SCH (09:09)
[2022-09-20] MEDS: Omeprazole 20 MG Cap.CR PO SCH ×2 (09:09→20:55)
[2022-09-20] MEDS: Acetaminophen 325 MG Tab PO PRN (13:06)
[2022-09-20] MEDS: WARFARIN 3 MG PO SCH (17:52)
[2022-09-20] MEDS: QUETIAPINE 300 MG PO SCH (17:55)
[2022-09-20] MEDS: Tamsulosin 0.4 MG Cap.ER (OWN SUPPLY) PO SCH (20:55)
[2022-09-20] MEDS: Sertraline 100 MG Tab (OWN SUPPLY) PO SCH (20:56)
[2022-09-20] MEDS: TOPIRAMATE 100 MG PO SCH (20:56)
[2022-09-20] MEDS: MIRTAZAPINE 30 MG PO SCH (20:57)
[2022-09-21 07:10] LABS: INR 1.6 (2.0-3.5); PROTHROMBIN TIME 16.7 SEC (9.5-12.2)
[2022-09-21] MEDS: Omeprazole 20 MG Cap.CR PO SCH ×2 (08:19→20:05)
[2022-09-21] MEDS: Multivitamin Tab PO SCH (08:20)
[2022-09-21] MEDS: EZETIMIBE 10 MG PO SCH (08:20)
[2022-09-21] MEDS: Docusate Sodium 100 MG Cap PO SCH ×2 (08:20→20:05)
[2022-09-21] MEDS: Ascorbic Acid 500 MG Tab PO SCH (08:20)
[2022-09-21] MEDS: Cyanocobalamin (Vitamin B12) 1,000 MCG Tab PO SCH (08:20)
[2022-09-21] MEDS: Cholecalciferol (Vitamin D3) 25 MCG Tab PO SCH (08:20)
[2022-09-21] MEDS: LORazepam 1 MG Tab (OWN SUPPLY) PO SCH ×4 (08:22→20:07)
[2022-09-21] MEDS: Enoxaparin 40 MG/0.4 ML Syringe (OWN SUPPLY) SUBCUT SCH (08:23)
[2022-09-21] MEDS: amLODIPine 10 MG Tab (OWN SUPPLY) PO SCH (08:24)
[2022-09-21] MEDS: QUETIAPINE 300 MG PO SCH (17:25)
[2022-09-21] MEDS: WARFARIN 3 MG PO SCH (17:25)
[2022-09-21] MEDS: TOPIRAMATE 100 MG PO SCH (20:06)
[2022-09-21] MEDS: Sertraline 100 MG Tab (OWN SUPPLY) PO SCH (20:06)
[2022-09-21] MEDS: MIRTAZAPINE 30 MG PO SCH (20:06)
[2022-09-21] MEDS: Tamsulosin 0.4 MG Cap.ER (OWN SUPPLY) PO SCH (20:06)
[2022-09-22 06:59] LABS: INR 1.7 (2.0-3.5); PROTHROMBIN TIME 17.8 SEC (9.5-12.2)
[2022-09-22] MEDS: Multivitamin Tab PO SCH (08:12)
[2022-09-22] MEDS: Ascorbic Acid 500 MG Tab PO SCH (08:12)
[2022-09-22] MEDS: Cholecalciferol (Vitamin D3) 25 MCG Tab PO SCH (08:12)
[2022-09-22] MEDS: Docusate Sodium 100 MG Cap PO SCH ×2 (08:13→20:28)
[2022-09-22] MEDS: Cyanocobalamin (Vitamin B12) 1,000 MCG Tab PO SCH (08:13)
[2022-09-22] MEDS: Enoxaparin 40 MG/0.4 ML Syringe (OWN SUPPLY) SUBCUT SCH (08:13)
[2022-09-22] MEDS: Omeprazole 20 MG Cap.CR PO SCH ×2 (08:13→20:28)
[2022-09-22] MEDS: LORazepam 1 MG Tab (OWN SUPPLY) PO SCH ×4 (08:13→20:29)
[2022-09-22] MEDS: amLODIPine 10 MG Tab (OWN SUPPLY) PO SCH (08:14)
[2022-09-22] MEDS: EZETIMIBE 10 MG PO SCH (08:14)
[2022-09-22] MEDS: QUETIAPINE 300 MG PO SCH (17:53)
[2022-09-22] MEDS: WARFARIN 3 MG PO ONE ×2 (18:05→18:06)
[2022-09-22] MEDS: TOPIRAMATE 100 MG PO SCH (20:29)
[2022-09-22] MEDS: Sertraline 100 MG Tab (OWN SUPPLY) PO SCH (20:29)
[2022-09-22] MEDS: Tamsulosin 0.4 MG Cap.ER (OWN SUPPLY) PO SCH (20:29)
[2022-09-22] MEDS: MIRTAZAPINE 30 MG PO SCH (20:29)
[2022-09-23 07:01] LABS: INR 2.1 (2.0-3.5); PROTHROMBIN TIME 22.1 SEC (9.5-12.2)
[2022-09-23] MEDS: Cholecalciferol (Vitamin D3) 25 MCG Tab PO SCH (08:05)
[2022-09-23] MEDS: Omeprazole 20 MG Cap.CR PO SCH ×2 (08:07→20:34)
[2022-09-23] MEDS: Docusate Sodium 100 MG Cap PO SCH ×2 (08:08→20:34)
[2022-09-23] MEDS: Ascorbic Acid 500 MG Tab PO SCH (08:09)
[2022-09-23] MEDS: Cyanocobalamin (Vitamin B12) 1,000 MCG Tab PO SCH (08:09)
[2022-09-23] MEDS: Multivitamin Tab PO SCH (08:09)
[2022-09-23] MEDS: amLODIPine 10 MG Tab (OWN SUPPLY) PO SCH (08:11)
[2022-09-23] MEDS: EZETIMIBE 10 MG PO SCH (08:12)
[2022-09-23] MEDS: LORazepam 1 MG Tab (OWN SUPPLY) PO SCH ×4 (08:15→20:32)
[2022-09-23] MEDS: QUETIAPINE 300 MG PO SCH (17:24)
[2022-09-23] MEDS: WARFARIN 3 MG PO SCH (17:28)
[2022-09-23] MEDS: QUETIAPINE 200 MG PO PRN (20:34)
[2022-09-23] MEDS: Tamsulosin 0.4 MG Cap.ER (OWN SUPPLY) PO SCH (20:34)
[2022-09-23] MEDS: TOPIRAMATE 100 MG PO SCH (20:36)
[2022-09-23] MEDS: MIRTAZAPINE 30 MG PO SCH (20:36)
[2022-09-23] MEDS: Sertraline 100 MG Tab (OWN SUPPLY) PO SCH (20:36)
[2022-09-24 06:55] LABS: INR 2.2 (2.0-3.5); PROTHROMBIN TIME 22.8 SEC (9.5-12.2)
[2022-09-24] MEDS: Cyanocobalamin (Vitamin B12) 1,000 MCG Tab PO SCH (08:33)
[2022-09-24] MEDS: Cholecalciferol (Vitamin D3) 25 MCG Tab PO SCH (08:33)
[2022-09-24] MEDS: Docusate Sodium 100 MG Cap PO SCH (08:33)
[2022-09-24] MEDS: Multivitamin Tab PO SCH (08:34)
[2022-09-24] MEDS: Omeprazole 20 MG Cap.CR PO SCH (08:34)
[2022-09-24] MEDS: amLODIPine 10 MG Tab (OWN SUPPLY) PO SCH (08:34)
[2022-09-24] MEDS: Ascorbic Acid 500 MG Tab PO SCH (08:34)
[2022-09-24] MEDS: EZETIMIBE 10 MG PO SCH (08:35)
[2022-09-24] MEDS: LORazepam 1 MG Tab (OWN SUPPLY) PO SCH ×2 (08:35→12:18)
[2022-09-24 12:19] VITALS: BP 133/83; PULSE 90
== END 2022-09-24 12:25 | DRG 948 ==
LOC: VM.MS 12:01
PROVIDERS: ADMIT Internal Medicine; ATTEND Family Medicine
PROC: 0DBM8ZZ Excision of Descending Colon, Via Natural or Artificial Opening Endoscopic (ICD-10-PCS; principal; 2022-09-02)
PROC: 0DBL8ZZ Excision of Transverse Colon, Via Natural or Artificial Opening Endoscopic (ICD-10-PCS; 2022-09-02)
PROC: 0DB98ZX Excision of Duodenum, Via Natural or Artificial Opening Endoscopic, Diagnostic (ICD-10-PCS; 2022-09-02)
PROC: 0DB68ZX Excision of Stomach, Via Natural or Artificial Opening Endoscopic, Diagnostic (ICD-10-PCS; 2022-09-02)
DX: R53.81 Other malaise (principal); K92.2 Gastrointestinal hemorrhage, unspecified; D50.0 Iron deficiency anemia secondary to blood loss (chronic); R79.1 Abnormal coagulation profile; K63.89 Other specified diseases of intestine; K31.89 Other diseases of stomach and duodenum; F31.9 Bipolar disorder, unspecified; I10 Essential (primary) hypertension; E78.00 Pure hypercholesterolemia, unspecified; R73.01 Impaired fasting glucose; R53.83 Other fatigue; K21.9 Gastro-esophageal reflux disease without esophagitis; K20.90 Esophagitis, unspecified without bleeding; R41.89 Other symptoms and signs involving cognitive functions and awareness; Z90.89 Acquired absence of other organs; Z98.890 Other specified postprocedural states; Z79.899 Other long term (current) drug therapy; Z86.718 Personal history of other venous thrombosis and embolism; Z79.01 Long term (current) use of anticoagulants
CPT/HCPCS: 00813; 36415; 82274; 85025; 85610; 88305; 95851-GO; 97110-GP; 97116-GP; 97165-GO; 97530-GP; 97535-GO; A9270-GY; J1650; J2704; J3010; J7120; U0002

== ENCOUNTER 2024-10-08 06:29 | Day surgery (SDC) | payer MEDICARE, MEDICAID ==
[~2024-10-08 06:29] MED LIST changes: -Ascorbic Acid 500 MG Tab PO SCH; -Cholecalciferol (Vitamin D3) 25 MCG Tab PO SCH; -Cyanocobalamin (Vitamin B12) 1,000 MCG Tab PO SCH; +Dexamethasone/Neomycin/Polymyxin B Ophth Oint 3.5 GM Tube ONE; -Docusate Sodium 100 MG Cap PO SCH; -Ezetimibe 10 MG Tab PO SCH; -LORazepam 1 MG Tab PO SCH; +Lidocaine 1% 2 ML ONE; +Phenyleprhine/Ketorolac 4 ML Vial ONE; +Povidone-Iodine 5% Sterile Ophth Soln 30 ML Bottle ONE; -QUEtiapine 100 MG Tab PO PRN; -amLODIPine 10 MG Tab PO SCH
[2024-10-08] MEDS: Cyclopentolate 1% Opth Soln 2 ML Bottle EYELF SCH (06:51)
[2024-10-08] MEDS: Moxifloxacin 0.5% Ophth Soln 3 ML Bottle EYELF ONE ×2 (07:13→08:19)
[2024-10-08] MEDS ORDERED: Propofol 200 MG/20 ML SDV ONE (07:31)
[2024-10-08] MEDS ORDERED: fentaNYL 100 MCG/2 ML SDV ONE (07:31)
[2024-10-08] MEDS ORDERED: Midazolam 1 MG/ML 2 ML SDV ONE (07:32)
[2024-10-08] MEDS: Balanced Salt Solution Ophth Irrig 500 ML Bottle IOCULAR ONE (08:19)
[2024-10-08] MEDS: Povidone-Iodine 5% Sterile Ophth Soln 30 ML Bottle EYELF ONE (08:19)
[2024-10-08] MEDS: Chondroitin Sulfate/Hyaluronate Sodium Ophth Inj 0.5 ML Syringe IOCULAR ONE (08:20)
[2024-10-08] MEDS: Phenyleprhine/Ketorolac 4 ML Vial IO ONE (08:20)
[2024-10-08] MEDS: Lidocaine 1% PF 2 ML SDV INFILT ONE (08:20)
[2024-10-08] MEDS: Dexamethasone/Neomycin/Polymyxin B Ophth Oint 3.5 GM Tube EYELF ONE (08:21)
[2024-10-08] MEDS: acetaZOLAMIDE 500 MG Cap.ER PO ONE (08:40)
[2024-10-08 08:47] VITALS: BP 149/67; PULSE 62
== END 2024-10-08 09:05 ==
LOC: VM.SDS 06:29
PROVIDERS: ATTEND Ophthalmology
DX: H25.812 Combined forms of age-related cataract, left eye (principal); I10 Essential (primary) hypertension; E78.5 Hyperlipidemia, unspecified; E66.9 Obesity, unspecified; K21.9 Gastro-esophageal reflux disease without esophagitis; F31.9 Bipolar disorder, unspecified; I25.10 Atherosclerotic heart disease of native coronary artery without angina pectoris; Z88.0 Allergy status to penicillin; Z68.34 Body mass index [BMI] 34.0-34.9, adult; Z79.01 Long term (current) use of anticoagulants; Z79.899 Other long term (current) drug therapy
CPT/HCPCS: 66984; A9270; J1097; J2003; J2250; J3010; 00142; 99100; J0690; J2704; J3490

== ENCOUNTER 2024-11-05 06:38 | Day surgery (SDC) | payer MEDICARE, MEDICAID ==
[2024-11-05] MEDS: Cyclopentolate 1% Opth Soln 2 ML Bottle EYERT SCH (06:48)
[2024-11-05] MEDS: Moxifloxacin 0.5% Ophth Soln 3 ML Bottle EYERT ONE ×2 (07:09→08:24)
[2024-11-05] MEDS ORDERED: Midazolam 1 MG/ML 2 ML SDV ONE (07:25)
[2024-11-05] MEDS ORDERED: fentaNYL 100 MCG/2 ML SDV ONE (07:25)
[2024-11-05] MEDS: Povidone-Iodine 5% Sterile Ophth Soln 30 ML Bottle EYERT ONE (08:23)
[2024-11-05] MEDS: Phenyleprhine/Ketorolac 4 ML Vial IOCULAR ONE (08:24)
[2024-11-05] MEDS: Balanced Salt Solution Ophth Irrig 500 ML Bottle IOCULAR ONE (08:24)
[2024-11-05] MEDS: Chondroitin Sulfate/Hyaluronate Sodium Ophth Inj 0.5 ML Syringe IOCULAR ONE (08:25)
[2024-11-05] MEDS: Lidocaine 1% PF 2 ML SDV INFILT ONE (08:25)
[2024-11-05] MEDS: Dexamethasone/Neomycin/Polymyxin B Ophth Oint 3.5 GM Tube EYERT ONE (08:25)
[2024-11-05] MEDS: acetaZOLAMIDE 500 MG Cap.ER PO ONE (08:41)
[2024-11-05 08:48] VITALS: BP 160/70; PULSE 75
== END 2024-11-05 09:08 | disposition home or self-care (01) ==
LOC: VM.SDS 06:38
PROVIDERS: ATTEND Ophthalmology
DX: H25.811 Combined forms of age-related cataract, right eye (principal); I10 Essential (primary) hypertension; E66.9 Obesity, unspecified; E78.5 Hyperlipidemia, unspecified; K21.9 Gastro-esophageal reflux disease without esophagitis; Z88.0 Allergy status to penicillin; Z87.891 Personal history of nicotine dependence; Z79.899 Other long term (current) drug therapy; Z68.34 Body mass index [BMI] 34.0-34.9, adult
CPT/HCPCS: 00142; 99100; A9270-GY; J0690; J1097; J2003; J2250; J3010; J3490